=== PATIENT | male | born 1955 | race Asian ===

== ENCOUNTER 2021-03-16 12:25 | Outpatient (REF) | payer MEDICARE, SELFPAY ==
[2021-03-16 13:42] LABS: MANUAL DIFF FLAG NO
[2021-03-16 14:00] LABS: Basophils Percent Auto 0.6 % (0-2); Eosinophils Absolute Auto 0.1 X10*3/uL (0.0-0.4); Eosinophils Percent Auto 2.2 % (0-4); Hematocrit 42.4 % (42-52); Hemoglobin 15.3 g/dl (14.0-18.0); Imm Gran Abs Auto 0.03 X10*3/uL (0.00-0.03); Imm Gran Pct Auto 0.6 % (0.0-0.4); Lymphocytes Absolute Auto 1.6 X10*3/uL (1.2-4.9); Mean Corpuscular HGB Conc 36.1 g/dl (31.0-36.0); Mean Corpuscular Hemoglobin 34.5 pg (27.0-33.0); Mean Corpuscular Volume 95.5 fL (80-98); Mean Platelet Volume 10.3 fL (9.4-12.4); Monocytes Absolute Auto 0.3 X10*3/uL (0.1-1.2); Monocytes Percent Auto 6.1 % (2-11); Neutrophils Absolute Auto 2.8 X10*3/uL (2.0-8.3); Neutrophils Percent Auto 57.5 % (45-73); Platelet Count 200 X10*3/uL (160-400); Red Blood Count 4.44 X10*6/uL (4.60-5.80); Red Cell Distribution Width 11.2 % (11.0-16.0); White Blood Count 4.9 X10*3/uL (4.8-10.8)
[2021-03-16 14:42] LABS: Alanine Aminotransferase 17 U/L (0-40); Albumin Level 4.2 g/dL (3.5-5.0); Alkaline Phosphatase 62 U/L (39-117); Anion Gap 12 (12-20); Aspartate Amino Transferase 17 U/L (5-37); Bilirubin Total 1.2 mg/dL (0.0-1.0); Blood Urea Nitrogen 13 mg/dL (9-16); Calcium 8.9 mg/dL (8.4-10.2); Carbon Dioxide 25 mmol/L (22-29); Chloride 108 mmol/L (96-108); Cholesterol 236 mg/dL; Estimated Glomerular Filt Rate > 60; Glucose Fasting 102 mg/dL (60-99); HDL Cholesterol 40 mg/dL; LDL Cholesterol Calculated 171 mg/dl; Potassium 3.9 mmol/L (3.3-5.1); Sodium 141 mmol/L (135-145); Total Protein 6.7 g/dL (6.5-8.0); Triglycerides 129 mg/dL
== END 2021-03-16 12:26 | disposition home or self-care (01) ==
LOC: HO.LAB 12:25
PROVIDERS: PCP Internal Medicine; Visit Provider Internal Medicine
DX: Z00.00 Encounter for general adult medical examination without abnormal findings (principal); E11.9 Type 2 diabetes mellitus without complications
CPT/HCPCS: 36415; 80053; 80061; 85025

== ENCOUNTER 2022-08-12 09:30 | Outpatient (REF) | payer MEDICARE, SELFPAY ==
[2022-08-12 09:39] LABS: MANUAL DIFF FLAG NO
[2022-08-12 09:49] LABS: Basophils Percent Auto 0.7 % (0-2); Eosinophils Absolute Auto 0.1 X10*3/uL (0.0-0.4); Eosinophils Percent Auto 3.2 % (0-4); Hematocrit 42.7 % (42.0-52.0); Hemoglobin 14.6 g/dl (14.0-18.0); Imm Gran Abs Auto 0.01 X10*3/uL (0.00-0.03); Imm Gran Pct Auto 0.2 % (0.0-0.4); Lymphocytes Absolute Auto 1.7 X10*3/uL (1.2-4.9); Lymphocytes Percent Auto 39.8 % (20-40); Mean Corpuscular HGB Conc 34.2 g/dl (31.0-36.0); Mean Corpuscular Hemoglobin 33.7 pg (27.0-33.0); Mean Corpuscular Volume 98.6 fL (80.0-98.0); Mean Platelet Volume 9.8 fL (9.4-12.4); Monocytes Absolute Auto 0.3 X10*3/uL (0.1-1.2); Monocytes Percent Auto 7.9 % (2-11); Neutrophils Absolute Auto 2.1 x10*3/uL (2.0-8.3); Neutrophils Percent Auto 48.2 % (45-73); Platelet Count 165 X10*3/uL (160-400); Red Blood Count 4.33 X10*6/uL (4.60-5.80); Red Cell Distribution Width 11.3 % (11.0-16.0); White Blood Count 4.3 X10*3/uL (4.8-10.8)
[2022-08-12 10:50] LABS: Alanine Aminotransferase 18 U/L (0-40); Albumin Level 4.3 g/dL (3.5-5.0); Alkaline Phosphatase 62 U/L (39-117); Anion Gap 14 (12-20); Aspartate Amino Transferase 18 U/L (5-37); Bilirubin Total 1.1 mg/dL (0.0-1.0); Blood Urea Nitrogen 18 mg/dL (9-16); Calcium 8.9 mg/dL (8.4-10.2); Carbon Dioxide 25 mmol/L (22-29); Chloride 106 mmol/L (96-108); Cholesterol 244 mg/dL; Estimated Glomerular Filt Rate > 60; Glucose Fasting 96 mg/dL (60-99); HDL Cholesterol 44 mg/dL; LDL Cholesterol Calculated 182 mg/dl; Potassium 3.9 mmol/L (3.3-5.1); Sodium 141 mmol/L (135-145); Total Protein 6.9 g/dL (6.5-8.0); Triglycerides 92 mg/dL
[2022-08-12 10:59] LABS: Prostate Specific Antigen Scr 0.47 ng/mL (<0.05-4.0)
== END 2022-08-12 09:31 | disposition home or self-care (01) ==
LOC: HO.LAB 09:30
PROVIDERS: PCP Internal Medicine; Visit Provider Internal Medicine
DX: Z00.00 Encounter for general adult medical examination without abnormal findings (principal); Z13.0 Encounter for screening for diseases of the blood and blood-forming organs and certain disorders involving the immune mechanism; Z12.5 Encounter for screening for malignant neoplasm of prostate; E78.5 Hyperlipidemia, unspecified; I10 Essential (primary) hypertension
CPT/HCPCS: 36415; 80053; 80061; 84153; 85025

== ENCOUNTER 2022-11-20 14:18 | Outpatient (REF) | payer MEDICARE, SELFPAY ==
[2022-11-20 15:32] LABS: Influenza A PCR NEGATIVE (Negative); Influenza B PCR NEGATIVE (Negative); Resp Syncy Virus RNA Qual PCR NEGATIVE (Negative); SARS COV2 PCR INHOUSE NEGATIVE (Negative)
== END 2022-11-20 14:19 | disposition home or self-care (01) ==
LOC: HO.LNP 14:18
PROVIDERS: Visit Provider Physician Assistant
DX: Z20.822 Contact with and (suspected) exposure to COVID-19 (principal); B34.9 Viral infection, unspecified
CPT/HCPCS: 0241U

== ENCOUNTER 2023-01-02 12:06 | Outpatient (REF) | payer MEDICARE, SELFPAY ==
--- NOTE | ~2023-01-02 | XR_ITS ---
EXAMINATION: XR CHEST CLINICAL INFORMATION: Pneumonia. COMPARISON: None available. TECHNIQUE: 2 views of the chest were obtained. FINDINGS: No significant abnormality is noted involving the heart, lungs, mediastinum, bony thorax or soft tissues. XR/XR chest 2V IMPRESSION: Unremarkable chest examination.
== END 2023-01-02 12:07 | disposition home or self-care (01) ==
LOC: HO.XRAY 12:06
PROVIDERS: PCP Internal Medicine; Visit Provider Internal Medicine
DX: J18.9 Pneumonia, unspecified organism (principal)
CPT/HCPCS: 71046

== ENCOUNTER → 2023-03-14 14:21 | Outpatient (BNVA) | payer MEDICARE, SELFPAY | PROVIDERS: PCP Internal Medicine; Visit Provider Internal Medicine | DX: R05.3 Chronic cough (principal) | CPT/HCPCS: 99202 ==

== ENCOUNTER 2023-04-03 14:19 | Outpatient (REF) | payer MEDICARE, SELFPAY ==
--- NOTE | 2023-04-03 16:28 | PFT_ITS ---
INDICATION: Cough. SPIROMETRY: FEV1 to FVC of 77% with an FEV1 of 2.94 L, which is 100% predicted and FVC of 3.79 L, which is 95% predicted. No significant response to bronchodilators noted. Maximum voluntary ventilation 84% predicted. LUNG VOLUMES: Total lung capacity 126% predicted with a residual volume of 187% predicted. DIFFUSION CAPACITY: DLCO 81% predicted. COMPARISONS: None. INTERPRETATION: No restrictive ventilatory defects identified. No significant response to bronchodilators noted. There is evidence of air trapping/hyperinflation, which could be secondary to small airway disease. There is a normal diffusion capacity. If asthma is in the differential, methacholine challenge may be helpful in assessing for hyperreactive airways. Otherwise, clinical correlation warranted. Johan Spears MD MR/MODL / [id number]
== END 2023-04-03 14:20 | disposition home or self-care (01) ==
LOC: HO.RESP 14:19
PROVIDERS: PCP Internal Medicine; Visit Provider Internal Medicine
DX: R05.3 Chronic cough (principal)
CPT/HCPCS: 94010; 94727; 94729

== ENCOUNTER → 2023-04-03 16:28 | Outpatient (BNV) | payer MEDICARE, SELFPAY | PROVIDERS: PCP Internal Medicine; Visit Provider Hospitalist | DX: R05.3 Chronic cough (principal) | CPT/HCPCS: 94060; 94727; 94729 ==

== ENCOUNTER 2023-05-02 14:25 | Outpatient (AMB) | payer MEDICARE, SELFPAY ==
--- NOTE | 2023-05-02 14:30 | MHC.OFFVIS ---
Intake Vital Signs 05/02/23 14:31 Height 5 ft 6 in Weight 169 lb 12.095 oz BMI 27.4 BP 130/62 Blood Pressure Location Lt brachial Position Sitting Pulse 83 Pulse Source Pulse Oximeter Pulse Oximetry (%) 97 Oxygen Delivery Method Room Air Intake Visit Reasons: Cough Intake Note: Pt presents today to discuss PFT results. Pt sometimes has a cough where he brings up mucus that used to be yellow but is now white. Pt says that at his last visit he was supposed to be prescribed an inhaler but never received one. 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 SINCE LAST VISIT HE HAS HAD VERY LITTLE COUGH. ONLY OCCASIONAL MILD COUGH, BRINGS UP SMALL AMOUNTS OF PHLEGM WHICH IS WHITE, AND NOT YELLOW OR GREEN. HE DENIES ANY WHEEZING ATTACKS. HE HAS HAD NO RECURRENT RESPIRATORY INFECTION. HE IS NONSMOKER . [facility] Surgical History No history of previous surgery Family History Mother No problems noted. Father No problems noted. Social History Housing: Apartment Alcohol intake: never Patient Tobacco Use Status: Never used Tobacco e-Cigarette/Vaping Use: Never Used Second Hand Smoke Exposure: No service: No Current occupational status: employed Cognitive needs: No Hearing needs: No Vision needs: No Review of Systems Const All systems reviewed & are unremarkable except as noted in HPI and below Eyes Reports no additional complaints ENT Reports no additional complaints and Reports post nasal drip (ONLY MILD OFF AND ON) Card Reports no additional complaints Resp Denies chest congestion, Reports cough (HAS HAD BOUTS OF COUGH BUT NOT AT PRESENT), Denies hemoptysis and Denies excessive phlegm production GI Reports no additional complaints Reports no additional complaints Musc Reports no additional complaints Skin/Breast Reports system reviewed and no additional complaints, except as documented Neuro Reports no additional complaints Psych Reports no additional complaints Endo Reports no additional complaints Aller/Immun Reports no additional complaints Physical Exam Vital Signs: Last Vital Signs Pulse 83 05/02/23 14:31 BP 130/62 05/02/23 14:31 Pulse Ox 97 05/02/23 14:31 Oxygen Delivery Method Room Air 05/02/23 14:31 BMI result Body Mass Index 27.4 Const General: healthy appearing, comfortable, no acute distress, alert and awake Orientation/consciousness: patient oriented x3 HEENT Head: Yes normal to inspection General nose exam: No nasal polyps present and No nasal discharge present Face and sinus: Yes sinuses nontender Mouth: oropharynx normal Throat: Yes posterior oropharynx normal Eyes General: appearance normal, both eyes and all related structures Neck Neck: Yes normal visual inspection, Yes no lymphadenopathy, Yes trachea midline and Yes no JVD Thyroid: Thyroid normal Chest Chest palpation & inspection: normal inspection of the chest, normal palpation of entire chest wall and no tenderness Resp Effort & Inspection: normal respiratory effort Auscultation: clear to auscultation bilaterally, no crackles and no wheezes Cardio Palpation: normal PMI Rate: regular rate Rhythm: regular rhythm Heart sounds: no gallops and no murmurs Peripheral pulses: Peripheral pulses 2+ throughout GI Palpation (GI): Soft to palpation, nontender, No hepatosplenomegaly present and no masses Auscultation: normal bowel sounds Back/Spine/Pelvis Thoracic/Lumbar Spine: thoracic and lumbar spine normal to inspection Skin General skin exam: no rashes or lesions noted Neuro General: patient oriented x3 and no focal motor deficits Cranial nerves: Yes CN's II-XII intact bilaterally Extrem General: Yes normal to inspection, Yes no clubbing, cyanosis or edema and Yes no calf tenderness Psych Appearance: grossly normal and well kempt Speech and movement: Normal speech and movement present Results Reviewed Results Reviewed: PULMONARY FUNCTION TEST IS ESSENTIALLY NORMAL. NO EVIDENCE OF OBSTRUCTIVE OR RESTRICTIVE. PULMONARY DISORDER ALSO NO RESPONSE TO BRONCHODILATOR THERAPY. Assessment & Plan Assessment & Plan (1) Chronic cough: Comment: THIS GENTLEMAN HAD RECURRENT BOUTS OF COUGH DURING THE LAST WINTER. MOST LIKELY HE HAD POST INFECTIOUS COUGH, AND AFTER EFFECTIVE USE OF ANTIBIOTIC THE COUGH HAD RESOLVED ALMOST COMPLETELY. HE CONTINUES TO HAVE MILD INTERMITTENT COUGH PROBABLY DUE TO REACTIVE AIRWAYS. HE HAS NOT NEEDED TO USE ALBUTEROL INHALER. PULMONARY FUNCTION TEST IS ESSENTIALLY NORMAL. TX: I EXPLAINED THE RESULTS OF PULMONARY FUNCTION TEST TO HIM, REASSURED THAT HIS LUNGS WERE NORMAL. COUGH IS PROBABLY MILD SECONDARY TO REACTIVE AIRWAYS, POST INFECTIOUS . AND MAY LINGER ON FOR A FEW WEEKS ,EACH TIME AFTER HE HAS RESPIRATORY INFECTION. HE WILL USE ALBUTEROL HFA 1 OR 2 PUFFS Q 4-6 HOURS ONLY P.R.N. IF HE HAS PERSISTENT BOUT OF COUGH OR WHEEZING. NO NEED OF ANY REGULAR APPOINTMENT , BUT HE MAY CALL US IF THE COUGH BECOMES BOTHERSOME. Code(s): R05.3 - Chronic cough Coding Level of Care Code Est Pt Level 3 (86666) Diagnoses Chronic cough R05.3
[2023-05-02 14:31] VITALS: BP 130/62; PULSE 83; O2SAT 97; BMI 27.4
== END 2023-05-02 15:23 | disposition home or self-care (01) ==
PROVIDERS: PCP Internal Medicine; Visit Provider Internal Medicine
DX: R05.3 Chronic cough (principal)
CPT/HCPCS: 99213

== ENCOUNTER → 2023-05-02 14:25 | Outpatient (BNVA) | payer MEDICARE, SELFPAY | PROVIDERS: PCP Internal Medicine; Visit Provider Internal Medicine | DX: R05.3 Chronic cough (principal) | CPT/HCPCS: 99212 ==

== ENCOUNTER 2023-08-14 13:41 | Outpatient (AMB) | payer MEDICARE, SELFPAY ==
[2023-08-14 13:42] VITALS: BP 124/68; PULSE 85; O2SAT 96; BMI 27.3
--- NOTE | 2023-08-14 13:42 | MHC.PC.OV ---
Vital Signs 08/14/23 13:42 Height 5 ft 6 in Weight 169 lb BMI 27.3 BP 124/68 Blood Pressure Location Lt brachial Position Sitting Pulse 85 Pulse Source Pulse Oximeter Pulse Oximetry (%) 96 Oxygen Delivery Method Room Air Intake Visit Reasons: Annual Exam Washery Boss Required: No Clinical Law Professor: Not Required per policy Accompanied by: Self / Same As Patient Allergies No Known Allergies Allergy (Verified 08/14/23 13:42) Medication List - Last Reconciled 08/15/23 by Wes Loyd MD atorvastatin 20 mg PO DAILY Tobacco use date assessed: 01/02/23 Fall risk assessment: No Falls in past year Last assessed Fall Risk: 08/14/23 Dental Screening Dental Screen Date: 08/14/23 Did you have a dental visit in the last 12 months?: Yes Did you have a dental problem in the last 6 months where you did not have access to dental care?: No Was dental information given to patient?: Patient has dentist HPI Annual Exam HPI Details Hyperlipidemia on Rx; doing well and compliant [facility] Surgical History No history of previous surgery Family History Mother No problems noted. Father No problems noted. Housing: Apartment Alcohol intake: never Patient Tobacco Use Status: Never used Tobacco e-Cigarette/Vaping Use: Never Used Second Hand Smoke Exposure: No service: No Current occupational status: employed Cognitive needs: No Hearing needs: No Vision needs: Yes Questionnaire Thrive Questionnaire Date Thrive assessed: 01/02/23 RAY-7 AMB Questionnaire RAY-7 Date RAY - 7 assessed: 01/02/23 Source: Developed by Drs. Gary Osullivan, Nelida Boles, Yaniv Jackson and colleagues, with an educational alisa from [employer]. Review of Systems Const Denies chills, Denies fatigue, Denies headache(s) and Denies weight loss Eyes Denies change in vision, Denies diplopia and Denies eye pain ENT Denies vertigo, Denies dizziness, Denies headache(s) and Denies nasal discharge Card Denies chest pain, Denies rapid heart rate and Denies dyspnea on exertion Resp Denies chest congestion, Denies cough, Denies pain with cough and Denies dyspnea on exertion GI Denies abdominal pain, Denies hematochezia and Denies change in bowel habits Musc Denies myalgias, Denies arthralgias and Denies joint swelling Skin/Breast Denies lesions and Denies unusual bruising Neuro Denies vertigo, Denies dizziness, Denies headache(s) and Denies focal weakness Endo Denies fatigue Physical exam (Primary Care) Vital Signs: Last Vital Signs Pulse 85 08/14/23 13:42 BP 124/68 08/14/23 13:42 Pulse Ox 96 08/14/23 13:42 Oxygen Delivery Method Room Air 08/14/23 13:42 BMI result Body Mass Index 27.3 Tobacco/Smoking Status: Tobacco use Status Tobacco use date assessed 01/02/23 08/14/23 13:46 Patient Tobacco Use Status Never used Tobacco 08/14/23 13:46 e-Cigarette/Vaping Use Never Used 08/14/23 13:46 Thrive Assessment: Date of Thrive Assessment Date Thrive assessed 01/02/23 08/14/23 13:46 Advance Care Planning discussion: On file, no changes Forms completed: Health Care Proxy Const General: cooperative, healthy appearing and no acute distress Orientation/consciousness: oriented to person, oriented to place and oriented to time [facility] Head: Yes normal to inspection, Yes normocephalic and Yes atraumatic Mouth: Normal oral and palatal mucosa present and tongue normal Throat: Yes posterior oropharynx normal and Yes uvula midline Eyes General: appearance normal, both eyes and all related structures Neck Neck: Yes normal visual inspection, Yes full ROM and Yes no lymphadenopathy Thyroid: Thyroid normal Carotids: normal carotid upstroke Chest Chest palpation & inspection: normal inspection of the chest Resp Effort & Inspection: normal respiratory effort and able to speak in complete sentences Auscultation: clear to auscultation bilaterally Cardio Jugular venous distension: no JVD Palpation: normal PMI Rate: regular rate Rhythm: regular rhythm Heart sounds: S1 normal heart sound present and S2 normal heart sound present GI Inspection: Yes normal to inspection Palpation (GI): Soft to palpation and No hepatosplenomegaly present Auscultation: normal bowel sounds General: Yes no CVA tenderness Back/Spine/Pelvis Back: no CVA tenderness Skin General skin exam: no rashes or lesions noted Neuro General: oriented to person, oriented to place and oriented to time Extrem General: Yes normal to inspection and Yes full ROM Assessment and Plan Assessment & Plan (1) Physical exam: Code(s): Z00.00 - Encounter for general adult medical examination without abnormal findings Plan: stable (2) Hyperlipidemia: Code(s): E78.5 - Hyperlipidemia, unspecified Plan: stable; same rx Orders: Orders Lipid Panel Today E78.5 - Hyperlipidemia, unspecified Comprehensive [place]. Panel Fast Today N28.9 - Disorder of kidney and ureter, unspecified Prostate Specific Antigen Scr Today Z00.00 - Encounter for general adult medical examination without abnormal findings Complete Blood Count Auto Diff Today D64.9 - Anemia, unspecified Referrals Gastroenterology Referral Z12.11 - Encounter for screening for malignant neoplasm of colon Coding Level of Care Code Est Pt Prev Care >65y(44183) Diagnoses Physical exam Z00.00 Hyperlipidemia E78.5 Additional Codes Vital Signs *Quality* - Advance Care Planning discussion: On file, no changes ([id number])
== END 2023-08-14 14:06 | disposition home or self-care (01) ==
PROVIDERS: Visit Provider Internal Medicine
DX: Z00.00 Encounter for general adult medical examination without abnormal findings (principal); E78.5 Hyperlipidemia, unspecified
CPT/HCPCS: 1123F; 99397

== ENCOUNTER 2023-08-20 11:53 | Outpatient (REF) | payer MEDICARE, SELFPAY ==
[2023-08-20 12:11] LABS: MANUAL DIFF FLAG NO
[2023-08-20 12:47] LABS: Basophils Percent Auto 0.4 % (0-2); Eosinophils Absolute Auto 0.1 X10*3/uL (0.0-0.4); Eosinophils Percent Auto 2.4 % (0-4); Hematocrit 41.8 % (42.0-52.0); Imm Gran Abs Auto 0.01 X10*3/uL (0.00-0.03); Imm Gran Pct Auto 0.2 % (0.0-0.4); Lymphocytes Percent Auto 39.5 % (20-40); Mean Corpuscular HGB Conc 35.9 g/dl (31.0-36.0); Mean Corpuscular Hemoglobin 34.3 pg (27.0-33.0); Mean Corpuscular Volume 95.7 fL (80.0-98.0); Mean Platelet Volume 10.6 fL (9.4-12.4); Monocytes Absolute Auto 0.3 X10*3/uL (0.1-1.2); Monocytes Percent Auto 6.7 % (2-11); Neutrophils Absolute Auto 2.5 x10*3/uL (2.0-8.3); Neutrophils Percent Auto 50.8 % (45-73); Platelet Count 159 X10*3/uL (160-400); Red Blood Count 4.37 X10*6/uL (4.60-5.80); Red Cell Distribution Width 11.1 % (11.0-16.0)
[2023-08-20 13:19] LABS: Alanine Aminotransferase 27 U/L (0-40); Albumin Level 4.1 g/dL (3.5-5.0); Alkaline Phosphatase 64 U/L (39-117); Anion Gap 12 (12-20); Aspartate Amino Transferase 22 U/L (5-37); Bilirubin Total 1.4 mg/dL (0.0-1.0); Blood Urea Nitrogen 15 mg/dL (9-16); Calcium 9.2 mg/dL (8.4-10.2); Carbon Dioxide 25 mmol/L (22-29); Chloride 107 mmol/L (96-108); Cholesterol 138 mg/dL (<200); Estimated Glomerular Filt Rate > 60; Glucose Fasting 93 mg/dL (60-99); HDL Cholesterol 37 mg/dL (>40); LDL Cholesterol Calculated 88 mg/dL (<100); Potassium 3.7 mmol/L (3.3-5.1); Sodium 140 mmol/L (135-145); Total Protein 6.9 g/dL (6.5-8.0); Triglycerides 68 mg/dL (<150)
[2023-08-20 13:39] LABS: Prostate Specific Antigen Scr 0.57 ng/mL (<0.05-4.0)
== END 2023-08-20 11:54 | disposition home or self-care (01) ==
LOC: HO.LAB 11:53
PROVIDERS: PCP Internal Medicine; Visit Provider Internal Medicine
DX: Z00.00 Encounter for general adult medical examination without abnormal findings (principal); Z12.5 Encounter for screening for malignant neoplasm of prostate; E78.5 Hyperlipidemia, unspecified; N28.9 Disorder of kidney and ureter, unspecified; D64.9 Anemia, unspecified
CPT/HCPCS: 36415; 80053; 80061; 84153; 85025

== ENCOUNTER 2024-08-18 12:55 | Outpatient (AMB) | payer MEDICARE, SELFPAY ==
[2024-08-18 13:01] VITALS: BP 110/62; PULSE 91; O2SAT 96; BMI 27.1
--- NOTE | 2024-08-18 13:01 | A.OFFPC_ITS ---
Vital Signs 08/18/24 13:01 Height 5 ft 6 in Weight 168 lb 0.4 oz BMI 27.1 BP 110/62 Blood Pressure Location Lt brachial Position Sitting Pulse 91 Pulse Source Pulse Oximeter Pulse Oximetry (%) 96 Oxygen Delivery Method Room Air Intake Visit Reasons: Annual exam Sales Merchandise Associate Required: No Accompanied by: Self / Same As Patient Allergies No Known Allergies Allergy (Verified 08/18/24 13:01) Tobacco use date assessed: 08/18/24 Fall risk assessment: No Falls in past year Last assessed Fall Risk: 08/18/24 Dental Screening Dental Screen Date: 08/18/24 Did you have a dental visit in the last 12 months?: Yes Did you have a dental problem in the last 6 months where you did not have access to dental care?: No Was dental information given to patient?: Patient has dentist HPI Annual exam HPI Details hyperlipidemia on rx; doing well [facility] Surgical History No history of previous surgery Family History Mother No problems noted. Father No problems noted. Social History Housing: Apartment Alcohol intake: never Patient Tobacco Use Status: Never used Tobacco e-Cigarette/Vaping Use: Never Used Second Hand Smoke Exposure: No service: No Current occupational status: employed Cognitive needs: No Hearing needs: No Vision needs: Yes Questionnaire PHQ-9 Over the last 2 weeks, how often have you been bothered by any of the following problems? 1. Little interest or pleasure in doing things: not at all 2. Feeling down, depressed, or hopeless: not at all 3. Trouble falling or staying asleep, or sleeping too much: not at all 4. Feeling tired or having little energy: not at all 5. Poor appetite or overeating: not at all 6. Feeling bad about yourself - or that you are a failure or have let yourself or your family down: not at all 7. Trouble concentrating on things, such as reading the newspaper or watching television: not at all 8. Moving or speaking so slowly that other people could have noticed. Or the opposite - being so fidgety or restless that you have been moving around a lot more than usual: not at all 9. Thoughts that you would be better off or of hurting yourself in some way: not at all Total score: 0 Source: Developed by Drs. Gary Osullivan, Nelida Boles, Yaniv Jackson and colleagues, with an educational alisa from [employer]. Thrive Questionnaire Date Thrive assessed: 08/16/24 I am a: Patient What is your living situation today?: I have a steady place to live Within the past 12 months, did the food you bought not last and you didn't have the money to get more?: Never true Within the past 12 months, did you worry whether your food would run out before you got money to buy more?: Never true Do you have trouble paying for medicines?: No Do you have trouble getting transportation to medical appointments?: No Do you have trouble paying your heating and electricity bill?: No Do you have trouble taking care of your child, family member or friend?: No Do you have trouble with day-to-day activities such as bathing, preparing meals, shopping, managing finances, etc.?: No Are you currently unemployed and looking for a job?: No Are you interested in more education?: No Please select the resources that you would like help with: None Currently or been in a relationship where the following occur: No concerns reported THRIVE Score: 0 AUDIT C Alcohol Use Questionnaire (AUDIT-C) 1. How often do you have a drink containing alcohol?: Monthly or less 2. How many drinks containing alcohol do you have on a typical day when you are drinking?: 1 or 2 3. How often do you have six or more drinks on one occasion?: Never Total Score: 1 RAY-7 AMB Questionnaire RAY-7 Date RAY - 7 assessed: 08/18/24 Feeling nervous, anxious, or on edge: 0 = Not at all Not being able to stop or control worryin = Not at all Worrying too much about different things: 0 = Not at all Trouble relaxin = Not at all Being so restless that it is hard to sit still: 0 = Not at all Becoming easily annoyed or irritable: 0 = Not at all Feeling afraid as if something awful might happen: 0 = Not at all Total RAY-7 score (0-4 normal; 5-9 mild; 10-14 moderate; 15-21 severe): 0 Source: Developed by Drs. Gary Osullivan, Nelida Boles, Yaniv Jackson and colleagues, with an educational alisa from [employer]. Review of Systems Const Denies chills, Denies fatigue, Denies headache(s) and Denies weight loss Eyes Denies change in vision, Denies diplopia and Denies eye pain ENT Denies vertigo, Denies dizziness, Denies headache(s) and Denies nasal discharge Card Denies chest pain, Denies rapid heart rate and Denies dyspnea on exertion Resp Denies chest congestion, Denies cough, Denies pain with cough and Denies dyspnea on exertion GI Denies abdominal pain, Denies hematochezia and Denies change in bowel habits Musc Denies myalgias, Denies arthralgias and Denies joint swelling Skin/Breast Denies lesions and Denies unusual bruising Neuro Denies vertigo, Denies dizziness, Denies headache(s) and Denies focal weakness Endo Denies fatigue Physical exam (Primary Care) Vital Signs: Last Vital Signs Pulse 91 08/18/24 13:01 BP 110/62 08/18/24 13:01 Pulse Ox 96 08/18/24 13:01 Oxygen Delivery Method Room Air 08/18/24 13:01 BMI result Body Mass Index 27.1 Tobacco/Smoking Status: Tobacco use Status Tobacco use date assessed 08/18/24 08/18/24 13:07 Patient Tobacco Use Status Never used Tobacco 08/18/24 13:07 e-Cigarette/Vaping Use Never Used 08/18/24 13:07 PHQ-9: PHQ-9 Score PHQ-9: Total score 0 08/18/24 13:07 Thrive Assessment: Date of Thrive Assessment Date Thrive assessed 08/16/24 08/18/24 13:07 Currently or been in a relationship where the following occur: No concerns reported Const General: cooperative, healthy appearing and no acute distress Orientation/consciousness: oriented to person, oriented to place and oriented to time [facility] Head: Yes normal to inspection, Yes normocephalic and Yes atraumatic Mouth: Normal oral and palatal mucosa present and tongue normal Throat: Yes posterior oropharynx normal and Yes uvula midline Eyes General: appearance normal, both eyes and all related structures Neck Neck: Yes normal visual inspection, Yes full ROM and Yes no lymphadenopathy Thyroid: Thyroid normal Carotids: normal carotid upstroke Chest Chest palpation & inspection: normal inspection of the chest Resp Effort & Inspection: normal respiratory effort and able to speak in complete sentences Auscultation: clear to auscultation bilaterally Cardio Jugular venous distension: no JVD Palpation: normal PMI Rate: regular rate Rhythm: regular rhythm Heart sounds: S1 normal heart sound present and S2 normal heart sound present GI Inspection: Yes normal to inspection Palpation (GI): Soft to palpation and No hepatosplenomegaly present Auscultation: normal bowel sounds General: Yes no CVA tenderness Back/Spine/Pelvis Back: no CVA tenderness Skin General skin exam: no rashes or lesions noted Neuro General: oriented to person, oriented to place and oriented to time Extrem General: Yes normal to inspection and Yes full ROM Coding Level of Care Code Est Pt Prev Care >65y(86317) Diagnoses Physical exam Z00.00 Hyperlipidemia E78.5 Assessment & Plan Assessment & Plan (1) Physical exam: Code(s): Z00.00 - Encounter for general adult medical examination without abnormal findings Category: Medical Plan: stable; do labs (2) Hyperlipidemia: Code(s): E78.5 - Hyperlipidemia, unspecified Category: Medical Plan: same rx Orders: Orders Lipid Panel Today Z13.220 - Encounter for screening for lipoid disorders Thyroid Stimulating Hormone Today Z13.29 - Encounter for screening for other suspected endocrine disorder Prostate Specific Antigen Scr Today Z00.00 - Encounter for general adult medical examination without abnormal findings Comprehensive [place]. Panel Fast Today Z13.9 - Encounter for screening, unspecified Complete Blood Count Auto Diff Today Z13.0 - Encounter for screening for diseases of the blood and blood-forming organs and certain disorders involving the immune mechanism
== END 2024-08-18 13:25 | disposition home or self-care (01) ==
PROVIDERS: PCP Internal Medicine; Visit Provider Internal Medicine
DX: Z00.00 Encounter for general adult medical examination without abnormal findings (principal); E78.5 Hyperlipidemia, unspecified

== ENCOUNTER → 2024-08-18 12:55 | Outpatient (BNVA) | payer MEDICARE, SELFPAY | PROVIDERS: PCP Internal Medicine; Visit Provider Internal Medicine | DX: Z00.00 Encounter for general adult medical examination without abnormal findings (principal); E78.5 Hyperlipidemia, unspecified | CPT/HCPCS: 96127; 99397 ==

== ENCOUNTER 2024-08-20 11:23 | Outpatient (REF) | payer MEDICARE, SELFPAY ==
[2024-08-20 11:42] LABS: MANUAL DIFF FLAG NO
[2024-08-20 12:20] LABS: Basophils Percent Auto 0.7 % (0-2); Eosinophils Absolute Auto 0.1 X10*3/uL (0.0-0.4); Eosinophils Percent Auto 2.2 % (0-4); Hematocrit 43.7 % (42.0-52.0); Hemoglobin 15.7 g/dl (14.0-18.0); Imm Gran Abs Auto 0.02 X10*3/uL (0.00-0.03); Imm Gran Pct Auto 0.4 % (0.0-0.4); Lymphocytes Absolute Auto 1.7 X10*3/uL (1.2-4.9); Lymphocytes Percent Auto 36.6 % (20-40); Mean Corpuscular HGB Conc 35.9 g/dl (31.0-36.0); Mean Corpuscular Hemoglobin 34.7 pg (27.0-33.0); Mean Corpuscular Volume 96.7 fL (80.0-98.0); Mean Platelet Volume 10.1 fL (9.4-12.4); Monocytes Absolute Auto 0.3 X10*3/uL (0.1-1.2); Neutrophils Absolute Auto 2.4 x10*3/uL (2.0-8.3); Neutrophils Percent Auto 53.1 % (45-73); Platelet Count 185 X10*3/uL (160-400); Red Blood Count 4.52 X10*6/uL (4.60-5.80); Red Cell Distribution Width 11.3 % (11.0-16.0); White Blood Count 4.6 X10*3/uL (4.8-10.8)
[2024-08-20 12:59] LABS: Alanine Aminotransferase 35 U/L (0-40); Albumin Level 4.2 g/dL (3.5-5.0); Alkaline Phosphatase 71 U/L (39-117); Anion Gap 16 (12-20); Aspartate Amino Transferase 26 U/L (5-37); Bilirubin Total 1.2 mg/dL (0.0-1.0); Blood Urea Nitrogen 12 mg/dL (9-16); Carbon Dioxide 24 mmol/L (22-29); Chloride 106 mmol/L (96-108); Cholesterol 151 mg/dL (<200); Estimated Glomerular Filt Rate > 60; Glucose Fasting 110 mg/dL (60-99); HDL Cholesterol 39 mg/dL (>40); LDL Cholesterol Calculated 93 mg/dL (<100); Potassium 3.7 mmol/L (3.3-5.1); Sodium 142 mmol/L (135-145); Triglycerides 96 mg/dL (<150)
[2024-08-20 13:04] LABS: Prostate Specific Antigen Scr 0.65 ng/mL (<0.05-4.0)
[2024-08-20 13:08] LABS: Thyroid Stimulating Hormone 1.57 uIU/mL (0.32-4.0)
== END 2024-08-20 11:24 | disposition home or self-care (01) ==
LOC: HO.LAB 11:23
PROVIDERS: PCP Internal Medicine; Visit Provider Internal Medicine
DX: Z13.0 Encounter for screening for diseases of the blood and blood-forming organs and certain disorders involving the immune mechanism (principal); Z00.00 Encounter for general adult medical examination without abnormal findings; Z13.220 Encounter for screening for lipoid disorders; Z13.29 Encounter for screening for other suspected endocrine disorder; Z12.5 Encounter for screening for malignant neoplasm of prostate
CPT/HCPCS: 36415; 80053; 80061; 84153; 84443; 85025

== ENCOUNTER 2024-09-10 07:08 | Day surgery (SDC) | payer MEDICARE, SELFPAY ==
--- OUTSIDE RECORDS SUMMARY | 2024-09-04 02:47 | XMS_ITS ---
Author Organization [facility] Address [address] [place] [address] Care Team Providers Care Wind Tunnel Mechanic Name Role Phone Rach MAO, Wes Primary Care Provider Gary Sharma Unavailable [phone] REASON FOR VISIT screening,hx polyps,gerd, hx ulcer Encounters Encounter Location Date Provider Diagnosis [facility] [address] [place] [address] [id number] 07/18/2024 Gary Ramírez PLAN OF TREATMENT Next Appt Details Provider Name:Gary Ramírez , 09/10/2024 09:30:00 AM, [address] [place] [address], [phone],
--- OUTSIDE RECORDS SUMMARY | 2024-09-04 02:47 | XMS_ITS ---
Author Organization [facility] Address [address] [place] [address] Care Team Providers Care Fire Tower Keeper Name Role Phone Rach MAO, Wes Primary Care Provider Gary Sharma Unavailable [phone] REASON FOR VISIT screening,hx polyps,gerd, hx ulcer Encounters Encounter Location Date Provider Diagnosis [facility] [address] [place] [address] [phone] 04/04/2024 Gary Ramírez PLAN OF TREATMENT Next Appt Details Provider Name:Gary Ramírez , 09/10/2024 09:30:00 AM, [address] [place] [address], [phone],
--- OUTSIDE RECORDS SUMMARY | 2024-09-04 02:47 | XMS_ITS | Patient Health Record ---
Author Organization [facility] Address [address] [place] [address] Care Team Providers Care Control Room Supervisor Name Role Phone eWs Loyd MD Primary Care Provider Gary Sharma [phone] ALLERGIES Allergen (clinical drug ingredient) Drug/Non Drug Allergy documented on EMR Reaction Allergy Type Onset Date Status hayfever (uncoded) Unknown Allergy A ctive REASON FOR REFERRAL No Information MEDICATIONS Medication SIG (Take, Route, Frequency, Duration) Notes Start Date End Date Status Latanoprost 0.005 % INSTILL 1 DROP INTO BOTH EYES AT BEDTIME Ophthalmic for 25 Active Atorvastatin Calcium 20 MG TAKE 1 TABLET BY MOUTH EVERY DAY Oral for 90 Active IMMUNIZATIONS Vaccine Route Administration Date Status Comme nts Influenza Unknown 07/17/2023 Administered SOCIAL HISTORY Tobacco Use: Social History Observation Description Date Details (start date - stop date) Never Smoker NA - NA Sex Assigned At : Social History Observation Description Sex Assigned At Unknown Tobacco Use/Smoking Question Answer Notes Patient is a nonsmoker Alcohol Screen Question Answer Notes Did you have a drink containing alcohol in the p ast year? No Points 0 Interpretation Negative PROBLEMS Problem Type ICD Code Onset Dates Problem Status W/U Status Risk SNOMED Code Notes Problem Colon cancer screening (Z12.11) Active confirmed Colon cancer screening (567851979) Problem GERD (gastroesophage al reflux disease) (K21.9) Active confirmed Gastroesophagea l reflux disease (494099249) Problem History of ulcer disease (Z87.898) Active confirmed Problem History of colon polyps (Z86.010) Active confirmed History of poly p of colon (425958013) Problem History of Helicobacter pylori infection (Z86.19) Active confirmed History of Helicobacter pylori infection (63806272804077968) VITAL SIGNS Temperature 98.0 degrees Fahrenheit 12/19/2023 Blood pressure diastolic 00 mm Hg 12/19/2023 Height 5 ft 7 in in 12/19/2023 Blood pressure systolic 000 mm Hg 12/19/2023 Weight 170 lb 8 oz lbs 12/19/2023 BMI 26.70 kg/m2 12/19/2023 Encounters Encounter Location Date Provider Diagnosis [facility] Outpatient [address] [place] [id number] 04/04/2024 Gary Ramírez [facility] Outpatient [address] [place] [address] [id number] 07/18/2024 Gary Ramírez [facility] [address] [place] [phone] 12/19/2023 Gary Ramírez Colon cancer screeni ng Z12.11 ; GERD (gastroesophageal reflux disease) K21.9 ; History of ulcer disease Z87.898 ; History of colon polyps Z86.010 and History of Helicobacter pylori infection Z86.19 [facility] [address] [place] [phone] 03/11/2024 Gary Ramírez ASSESSMENTS Encounter Date Diagnosis Assessment Notes Treatment Notes Treatment Clinical Notes 12/19/2023 Colon cancer screening (ICD-10 - Z12.11) 12/19/2023 GERD (gastroesophageal reflux disease) (ICD-10 - K21.9) 12/19/2023 History of ulcer disease (ICD-10 - Z87.898) 12/19/2023 History of colon polyps (ICD-10 - Z86.010) 12/19/2023 History of Helicobacter pylori infection (ICD-10 - Z86.19) PLAN OF TREATMENT Future Test Test Name Order Date UPPER GI ENDOSCOPY 12/19/2023 COLONOSCOPY 12/19/2023 Next Appt Details Provider Name:Gary Ramírez , 09/10/2024 09:30:00 AM, [address] [place] [address], [phone], Insurance Providers Payer Name Payer Address Payer Phone Subscriber Number Group Number Insured Name Patient Relationship to Insured Coverage Start Date Coverage End Date [facility] [address] [place] [address] [id number] FELIZ Self - patient is the insured MEDICAL (GENERAL) HISTORY Medical History History ICD Code Hyperlipidemia Glaucoma Denies [place],DM,CVA,Lung disease,renal dise ase Bleeding ulcer in 2006 in [facility]--had an EGD-treated for H.pylori by his description Colonoscopy in 2006 with the reported re moval of some polyps Surgical History Surgery Date(Month/Year)
--- OUTSIDE RECORDS SUMMARY | 2024-09-04 02:47 | XMS_ITS ---
Author Organization [facility] Address [address] [place] [address] Care Team Providers Care Bending Shed Worker Name Role Phone Rach MAO, Wes Primary Care Provider Gary Sharma Unavailable [phone] Encounters Encounter Location Date Provider Diagnosis [facility] [address] [place] [address] 03/11/2024 Gary Ramírez PLAN OF TREATMENT Next Appt Details Provider Name:Gary Ramírez , 09/10/2024 09:30:00 AM, [address] [place] [address] , [place], [phone],
[2024-09-08 13:30] VITALS: BMI 26.8
--- NOTE | 2024-09-09 12:57 | P.CONAN_ITS ---
Documented by User: Clair Del Cid NP 09/09/24 12:58 HPI - Anesthesia Eval Consult details Narrative: 69yo M for Upper Endoscopy and Colonoscopy [facility] Active Problems Active Problems: All Active Problems Hyperlipidemia (Acute) Chronic cough (Acute) Physical exam (Acute) Past Medical History Medical History Peptic ulcer Glaucoma Hyperlipidemia Family History Family History Mother No problems noted. Father No problems noted. Surgical History Surgical History History of esophagogastroduodenoscopy (EGD) H/O colonoscopy Social History Social History Household Members: Spouse Housing: Apartment Are you a primary vision care associate to a significant other at home: No Do you presently have visiting nurse or other home services: No Alcohol intake: never Patient Tobacco Use Status: Never used Tobacco e-Cigarette/Vaping Use: Never Used Second Hand Smoke Exposure: No Use of substances other than those prescribed or required for medical reasons: No Have you been hit, kicked, punched, or otherwise hurt by someone within the past year? If so, by whom?: No Are you DNR?: No Advance Directives: No Advance Directives Information Provided: Yes Advance Directives on File: No Recently lost weight without trying: No Nutrition Risks: No Nutritional Risk Poor oral hygiene: No service: No Current occupational status: employed Cognitive needs: No Hearing needs: No Vision needs: Yes Meds Allergies Allergy/AdvReac Type Severity Reaction Status Date / Time No Known Allergies Allergy Verified 08/18/24 13:01 Home Medications ?Medication ?Instructions ?Recorded ?Confirmed ?Last Taken ?Type latanoprost 0.005 % eye drops 1 drp ophthalmic (eye) BEDTIME 09/08/24 09/08/24 Unknown History Exam Height,Weight and Vital Signs: Height 5 ft 7 in Weight 77.564 kg Assessment and Plan Assessment Anesthesia Assessment: Chart Reviewed Documented by User: Tonya Jones MD 09/10/24 09:43 [facility] Past Medical History Medical History Peptic ulcer Glaucoma Hyperlipidemia Family History Family History Mother No problems noted. Father No problems noted. Surgical History Surgical History History of esophagogastroduodenoscopy (EGD) H/O colonoscopy History of Problems with Anesthesia: No Social History Social History Household Members: Spouse Housing: Apartment Are you a primary vision care associate to a significant other at home: No Do you presently have visiting nurse or other home services: No Alcohol intake: never Patient Tobacco Use Status: Never used Tobacco e-Cigarette/Vaping Use: Never Used Second Hand Smoke Exposure: No Use of substances other than those prescribed or required for medical reasons: No Have you been hit, kicked, punched, or otherwise hurt by someone within the past year? If so, by whom?: No Are you DNR?: No Advance Directives: No Advance Directives Information Provided: Yes Advance Directives on File: No Recently lost weight without trying: No Nutrition Risks: No Nutritional Risk Poor oral hygiene: No service: No Current occupational status: employed Cognitive needs: No Hearing needs: No Vision needs: Yes Meds Allergies Allergy/AdvReac Type Severity Reaction Status Date / Time No Known Allergies Allergy Verified 08/18/24 13:01 Home Medications ?Medication ?Instructions ?Recorded ?Confirmed ?Last Taken ?Type latanoprost 0.005 % eye drops 1 drp ophthalmic (eye) BEDTIME 09/08/24 09/08/24 Unknown History Exam Airway Mallampati Class: II TM Dist: >3cm Neck ROM: Full Loose/Missing/Broken Teeth: No Heart: RRR Lungs: CTA Assessment and Plan Assessment Anesthesia Assessment: Anesthesia Plan Discussed Final Anesthetic Review History of Problems with Anesthesia: No NPO: Yes ASA Class: II Final Preanesthetic Review: Meds/Allgs Chart Reviewed, Consent Obtained/Reviewed and Anes Risks/Benef Reviewed Patient Risk: Low Procedure Risk: Low Anesthetic Plan Anesthetic Plan: MAC: Disposition: Standard PACU
--- OUTSIDE RECORDS SUMMARY | 2024-09-10 07:10 | XMS_ITS ---
Author Organization [facility] Address [address] [place] [address] Care Team Providers Care Waiter/Waitress Dining Car Name Role Phone Rach MOA, Wes Primary Care Provider Gary Sharma Unavailable [phone] REASON FOR VISIT screening,hx polyps,gerd, hx ulcer Encounters Encounter Location Date Provider Diagnosis [facility] Outpatient [address] [place] [id number] 07/18/2024 Gary Ramírez PLAN OF TREATMENT Next Appt Details Provider Name:Gary Ramírez , 09/10/2024 08:30:00 AM, [address] [place] [address], [phone],
--- OUTSIDE RECORDS SUMMARY | 2024-09-10 07:10 | XMS_ITS ---
Author Organization [facility] Address [address] [place] [address] Care Team Providers Care Sail Lay Out Worker Name Role Phone Rach MAO, Wes Primary Care Provider Richarda Gary Miles Unavailable [phone] REASON FOR VISIT colon screening, egd Encounters Encounter Location Date Provider Diagnosis [facility] Outpatient [address] [place] [id number] 09/10/2024 Gary Ramírez PLAN OF TREATMENT Next Appt Details Provider Name:Gary Ramírez , 09/10/2024 08:30:00 AM, [address] [place], [place], [phone],
--- OUTSIDE RECORDS SUMMARY | 2024-09-10 07:11 | XMS_ITS ---
Author Organization [facility] Address [address] [place] [address] Care Team Providers Care Yeast Culture Developer Name Role Phone Rach MAO, Wes Primary Care Provider Gary Sharma Unavailable [phone] REASON FOR VISIT screening,hx polyps,gerd, hx ulcer Encounters Encounter Location Date Provider Diagnosis [facility] [place] [address] [place] [id number] 04/04/2024 Gary Ramírez PLAN OF TREATMENT Next Appt Details Provider Name:Gary Ramírez , 09/10/2024 08:30:00 AM, [address] [place] [address], [phone],
--- OUTSIDE RECORDS SUMMARY | 2024-09-10 07:11 | XMS_ITS | Patient Health Record ---
Author Organization [facility] Address [address] [place] [address] Care Team Providers Care Brim Pouncing Machine Operator Name Role Phone Wes Loyd MD Primary Care Provider Gary Sharma [phone] ALLERGIES Allergen (clinical drug ingredient) Drug/Non Drug [...] screening (Z12.11) Active confirmed Colon cancer screening (659639974) Problem GERD (gastroesophage al reflux disease) (K21.9) Active confirmed Gastroesophagea l reflux disease (588741215) Problem History of ulcer disease (Z87.898) Active confirmed Problem History of colon polyps (Z86.010) Active confirmed History of poly p of colon (229027509) Problem History of Helicobacter pylori infection (Z86.19) Active confirmed History of Helicobacter pylori infection (95687129862440914) VITAL SIGNS Temperature 98.0 degrees Fahrenheit 12/19/2023 Blood pressure diastolic 00 mm Hg 12/19/2023 Height 5 ft 7 in in 12/19/2023 Blood pressure systolic 000 mm Hg 12/19/2023 Weight 170 lb 8 oz lbs 12/19/2023 BMI 26.70 kg/m2 12/19/2023 Encounters Encounter Location Date Provider Diagnosis [facility] [place] [address] [place] [id number] 04/04/[address] [facility] [place] [address] [place] [id number] 07/18/[address] [facility] [place] [address] [place] [id number] 09/10/2024 Gary Ramírez [facility] [address] [place] [phone] 12/19/2023 Gary Ramírez Colon cancer screeni ng Z12.11 ; GERD (gastroesophageal reflux disease) K21.9 ; History of ulcer disease Z87.898 ; History of colon polyps Z86.010 and History of Helicobacter pylori infection Z86.19 [facility] [address] [place] [phone] 03/11/2024 Gary Ramírez ASSESSMENTS Encounter Date Diagnosis [...] Provider Name:Gary Ramírez , 09/10/2024 08:30:00 AM, [address] [place] [address], [phone], Insurance Providers Payer Name Payer Address Payer Phone Subscriber Number Group Number Insured Name Patient Relationship to Insured Coverage Start Date Coverage End Date [facility] [address] [address] [place] [address] [id number] CARLYN SALMERON Self - patient is the insured MEDICAL (GENERAL) HISTORY Medical History History ICD Code Hyperlipidemia Glaucoma Denies CT,DM,CVA,Lung disease,renal dise ase Bleeding ulcer in 2006 in [facility]--had an EGD-treated for H.pylori by his description Colonoscopy in 2006 with the reported re moval of some polyps Surgical History Surgery Date(Month/Year)
[2024-09-10 07:19] VITALS: BMI 25.5
[2024-09-10 07:33] VITALS: BP 125/70; PULSE 75; RESP 16; TEMP 36.4; O2SAT 97
[2024-09-10 07:41] VITALS: BMI 25.5
[2024-09-10] MEDS: Lactated Ringers 1,000 ML 100 ML IVCONT (07:47)
[2024-09-10 09:57] VITALS: BP 90/56; PULSE 79; RESP 16; TEMP 36.1; O2SAT 97
--- NOTE | 2024-09-10 10:01 | PM.OP ---
Brief Operative Note Date of Service: 09/10/24 Pre-op diagnosis: GERD, Hx of PUD, Screening Post-op diagnosis: other (Hiatal hernia, Diverticulosis) Procedure: EGD with biopsies, Colonoscopy to the cecum and TI Surgeon: Gary Ramírez MD Anesthesia: MAC Was an School Child Care Attendant used for this Procedure?: No Estimated blood loss (mL): 2.0 Pathology: other (A. Gastric antrum B. EG Junction at 38cm) Condition: stable Disposition: PACU
[2024-09-10 10:12] VITALS: BP 106/59; PULSE 79; RESP 16; TEMP 36.3; O2SAT 96
--- NOTE | 2024-09-10 10:19 | OP_ITS ---
DATE OF SERVICE: 09/10/2024 SURGEON: Gary Ramírez MD INDICATIONS: The patient presents for evaluation of gastroesophageal reflux, history of peptic ulcer disease, personal history of colon polyps, and colorectal cancer screening. Full consent has been obtained from him for this, including risks of bleeding and perforation. PREOPERATIVE DIAGNOSIS: POSTOPERATIVE DIAGNOSIS: PROCEDURE PERFORMED: Esophagogastroduodenoscopy with biopsies, and colonoscopy to the cecum and terminal ileum. ESTIMATED BLOOD LOSS: COMPLICATIONS: ANESTHESIA: Monitored anesthesia care. ASSISTANTS: SPECIMENS: PREOPERATIVE DIAGNOSES: Gastroesophageal reflux, history of ulcer disease, history of colon polyps, colorectal cancer screening. POSTOPERATIVE DIAGNOSES: Gastroesophageal reflux, history of ulcer disease, history of colon polyps, colorectal cancer screening, small hiatal hernia, diverticulosis, and internal hemorrhoids. DESCRIPTION OF PROCEDURE: The patient was placed in the left lateral decubitus position. The Olympus video gastroscope was passed in the posterior oropharynx and upper esophagus under direct vision. The scope was passed slowly into the distal esophagus. The gastroesophageal junction appeared at 38 cm. There was some very minimal irregularity, but no evidence of any esophagitis nor any definitive evidence of Gonzalez mucosa. The scope entered the stomach. There was a small hiatal hernia. The scope was advanced to pylorus and the duodenum was cannulated to the descending portion. The duodenum including the bulb appeared normal without mass or ulceration. The scope was withdrawn back to the stomach. The gastric antrum and body appeared normal with good peristalsis. Biopsies were obtained from the antrum. The scope was retroflexed, visualizing the proximal stomach carefully, which appeared normal, without any sign of mass or ulceration. The scope was straightened and withdrawn back to the esophagus. Biopsies were obtained at the EG junction at 38 cm. Proximal to this, the esophageal mucosa appeared normal. The scope was withdrawn from the patient. He was turned around for the colonoscopy. The digital rectal exam revealed no abnormalities. The Olympus video pediatric colonoscope was then entered into the rectum and advanced easily to the cecum. Once in the cecum, I did identify normal-appearing cecal pouch with appendiceal orifice and a normal-appearing ileocecal valve. The terminal ileum was cannulated and appeared normal. The scope was withdrawn back in the colon. The entire cecum and ileocecal valve appeared normal. The scope was then slowly withdrawn assessing all mucosal surfaces carefully. Preparation was excellent. I did not visualize any sign of polyps, colitis, nor angiodysplasias. There was a mild amount of sigmoid diverticulosis. In the rectum, scope was retroflexed, visualizing internal hemorrhoids, but no other pathology. The rectal mucosa appeared normal. Scope was straightened and withdrawn from the patient. He tolerated the procedure well and was returned to the recovery area in stable condition. IMPRESSION: 1. Small hiatal hernia, gastroesophageal reflux. 2. History of ulcer disease, rule out Helicobacter pylori. 3. Diverticulosis. 4. Internal hemorrhoids. PLAN: The results of the biopsy will be checked. Given today's negative colonoscopy, and the fact that his polyps were removed back in 2006, as well as the fact that he does not have any family history of colon cancer, I do not think he would need any further screening colonoscopies. He is not having any particular significant upper GI complaints and I do not think he needs to be on any specific treatment for his reflux. He will, otherwise, see me on a p.r.n. basis. This has been discussed with his . MD JOSUE Waters/JELLY / [id number]
== END 2024-09-10 10:55 | disposition home or self-care (01) ==
PROVIDERS: PCP Internal Medicine; Visit Provider Internal Medicine
PROC: (CPT 43239; principal; 2024-09-10 08:30)
DX: Z12.11 Encounter for screening for malignant neoplasm of colon (principal); Z86.0101 Personal history of adenomatous and serrated colon polyps; K57.30 Diverticulosis of large intestine without perforation or abscess without bleeding; K64.8 Other hemorrhoids; K21.9 Gastro-esophageal reflux disease without esophagitis; K44.9 Diaphragmatic hernia without obstruction or gangrene; Z87.11 Personal history of peptic ulcer disease; Z86.19 Personal history of other infectious and parasitic diseases; E78.5 Hyperlipidemia, unspecified; H40.9 Unspecified glaucoma; Z79.899 Other long term (current) drug therapy
CPT/HCPCS: 43239; G0105; 88305; 88342; J1100; J1596; J2003; J2704

== ENCOUNTER 2024-12-04 14:27 | Outpatient (REF) | payer MEDICARE, SELFPAY ==
[2024-12-04 17:38] LABS: Influenza A PCR NEGATIVE (Negative); Influenza B PCR NEGATIVE (Negative); Resp Syncy Virus RNA Qual PCR NEGATIVE (Negative); SARS COV2 PCR INHOUSE NEGATIVE (Negative)
== END 2024-12-04 14:28 | disposition home or self-care (01) ==
LOC: HO.LAB 14:27
PROVIDERS: Nurse Practitioner Family; PCP Internal Medicine
DX: J06.9 Acute upper respiratory infection, unspecified (principal); R05.3 Chronic cough
CPT/HCPCS: 0241U; 99212

== ENCOUNTER 2024-12-04 14:27 | Outpatient (AMB) | payer MEDICARE, SELFPAY ==
--- NOTE | 2024-12-04 14:40 | AM.OFFWIN_ITS ---
Intake Vital Signs 12/04/24 14:42 Weight 164 lb BP 108/60 Blood Pressure Location Rt brachial Position Sitting Pulse 80 Pulse Source Pulse Oximeter Pulse Oximetry (%) 98 Oxygen Delivery Method Room Air Intake Visit Reasons: EP-sore throat Intake Note: Patient here for cough and sore throat that has been present for at least 3 weeks. Patient Tobacco Use Status: Never used Tobacco Allergies No Known Allergies Allergy (Verified 12/04/24 14:42) Do you need a note to return to daycare/school/sports/work: No HPI HPI Comments History of Present Illness Details 69 y/o male patient who presents to the walk in clinic with c/o URI symptoms x 3 weeks. Reports Cough, chest tightness, and Sore-throat. [facility] Medical History (Updated 12/04/24 @ 14:57 by Liz Finley NP) Cough Acute respiratory disease Peptic ulcer Glaucoma Hyperlipidemia Surgical History History of esophagogastroduodenoscopy (EGD) H/O colonoscopy Family History Mother No problems noted. Father No problems noted. Social History Household Members: Spouse Housing: Apartment Are you a primary post acute care nurse to a significant other at home: No Do you presently have visiting nurse or other home services: No Alcohol intake: never Patient Tobacco Use Status: Never used Tobacco e-Cigarette/Vaping Use: Never Used Second Hand Smoke Exposure: No service: No Current occupational status: employed Cognitive needs: No Hearing needs: No Vision needs: Yes Review of Systems Const All systems reviewed & are unremarkable except as noted in HPI and below Physical Exam Vital Signs: Last Vital Signs Pulse 80 12/04/24 14:42 BP 108/60 12/04/24 14:42 Pulse Ox 98 12/04/24 14:42 Oxygen Delivery Method Room Air 12/04/24 14:42 Const General: cooperative and no acute distress Orientation/consciousness: patient oriented x3 HEENT Head: Yes normocephalic Ears: external ears normal and TM's normal bilaterally General nose exam: Normal external nose present and Nasal discharge present Face and sinus: Yes sinuses nontender Mouth: moist mucous membranes Throat: Yes uvula midline Resp Effort & Inspection: normal respiratory effort, able to speak in complete sentences and Actively coughing Quality: dry Auscultation: clear to auscultation bilaterally, no crackles, no rales, no rhonchi and no wheezes Cardio Heart sounds: S1 normal heart sound present and S2 normal heart sound present Neuro General: patient oriented x3 Assessment & Plan Assessment & Plan (1) Acute respiratory disease: Code(s): J06.9 - Acute upper respiratory infection, unspecified Plan: Ordered SARs (2) Cough: Code(s): R05.9 - Cough, unspecified Qualifiers: Cough type: chronic Qualified Code(s): R05.3 - Chronic cough Plan: OTC cough remedies Ordered Azithromycin and cough medicine. Rest and Hydrate well with warm fluids. Orders: Orders SARS-CoV2/FLU/RSV Today J06.9 - Acute upper respiratory infection, unspecified Medications: New benzonatate 200 mg (2 x 100 mg) PO BID 60 caps 0RF R05.3 - Chronic cough azithromycin 500 mg PO DAILY 3 days 3 tabs 0RF J06.9 - Acute upper respiratory infection, unspecified Coding Level of Care Code Est Pt Level 4 (56045) Diagnoses Acute respiratory disease J06.9 Chronic cough R05.3 Cough type: chronic Time Spent (min) 20
[2024-12-04 14:42] VITALS: BP 108/60; PULSE 80; O2SAT 98
--- OUTSIDE RECORDS SUMMARY | 2024-12-04 18:18 | XMS_ITS ---
[facility] Address [address] [place] [address] Care Team Providers Care Sales Route Driver Name Role Phone Rach MAO, Wes Primary Care Provider Richarda Gary Miles Unavailable [phone] REASON FOR VISIT colon screening, egd Problems Problem Type SNOMED Code ICD Code Onset Dates Problem Status W/U Status Risk Notes Problem Diverticular disease of colon (144337784) Diverticulosis of large intestine without perforation or abscess without bleeding (K57.30) Active confirmed Problem Gastroesophageal reflux disease (062734376) Esophageal reflux disease (K21.9) Active confirmed Encounters Encounter Location Date Provider Diagnosis [facility] [place] [address] [place], [place] [phone] 09/10/2024 Gary Ramírez Encounter for scre ening colonoscopy Z12.11 ; History of colon polyps Z86.0100 ; Diverticulosis of large intestine without perforation or abscess without bleeding K57.30 ; Other hemorrhoids K64.8 ; Esophageal reflux disease K21.9 ; Hiatal hernia K44.9 and History of gastric ulcer Z87.11 Assessments Encounter Date Diagnosis (ICD Code) Assessment Notes Treatment Notes Treatment Clinical Notes Section Notes 09/10/2024 Encounter for screening colonoscopy (ICD-10 - Z12.11) 09/10/2024 History of colon polyps (ICD-10 - Z86.0100) 09/10/2024 Diverticulosis of large intestine without perforation or abscess without bleeding (ICD-10 - K57.30) 09/10/2024 Other hemorrhoids (ICD-10 - K64.8) 09/10/2024 Esophageal reflux disease (ICD-10 - K21.9) 09/10/2024 Hiatal hernia (ICD-10 - K44.9) 09/10/2024 History of gastric ulcer (ICD-10 - Z87.11) Plan Of Treatment No Information Progress Notes * CARLYN SALMERON MDOB:[birth year] (69 yo M)Acc No.[id number]:09/10/2024 EGD and COL/MAC Patient:?JARONCARLYN Miller Provider:?Gary Ramírez MD :1955???Age:69 Y???Sex:Male Natan e:09/10/2024 Address:[address] [place] [address] Pcp:Wes Loyd MD Subjective: * Chief Complaints: * ???1. Colon screening, egd. * Medical History:? Objective: * Vitals:? Assessment: * Assessment: 1.?Encounter for screening c olonoscopy - Z12.11 (Primary)???2.?History of colon polyps - Z86.0100???3.?Diverticulosis of large intestine without perforation or abscess without bleeding - K57.30???4.?Other hemorrhoids - K64.8? ?5.?Esophageal reflux disease - K21.9???6.?Hiatal hernia - K44.9???7.?History of gastric ulcer - Z87.11??? Plan: * Treatment: * Procedure Codes:?G0105 COLOR EC CANCR SCR; COLNSCPY HI RISK, 0529F INTRVL 3+YRS PTS CLNSCP DOCD, 0528F RCMND FLW-UP 10 YRS DOCD, Modifiers: 1P , 30872 UPPER GI ENDOSCOPY, BIOPSY * * The named appointment provid er may or may not be the originator of this progress note, and it is not deemed complete until electronically signed by the appointment provider. Sign off status: Pending * Provider:?Gary Ramírez MD Date:? 024 Generated for Zeus bonds/Florecita/eTransmitting on:?12/04/2024 06:18 PM EDT
--- OUTSIDE RECORDS SUMMARY | 2024-12-04 18:18 | XMS_ITS ---
Author Organization [facility] Address [address] [place] [address] Care Team Providers Care Residential Builder Name Role Phone Rach MAO, Wes Primary Care Provider Gary Sharma [phone] REASON FOR VISIT screening,hx polyps,gerd, hx ulcer Encounters Encounter Location Date Provider Diagnosis [facility] [place] Out[place] [address] [place], [place] [phone] 07/18/2024 Gary Ramírez Plan Of Treatment No Information Progress Notes * CARLYN SALMERON MDOB:[birth year] (69 yo M)Acc No.[id number]:07/18/2024 EGD and COL/MAC Patient:?CARLYN SALMERON Provider:?Gary Ramírez MD :1955???Age:69 Y???Sex:Male Natan e:07/18/2024 Address:[address] [place], [place] [phone] Pcp:Wes Loyd MD Subjective: * Chief Complaints: * ???1. Screening,hx polyps,ge rd, hx ulcer. * Medical History:? Objective: * Vitals:? Assessment: Plan: * Treatment: * * The named appointment provid er may or may not be the originator of this progress note, and it is not deemed complete until electronically signed by the appointment provider. Sign off status: Pending * Provider:?Gary Ramírez MD Date:? 024 Generated for Ayalai vamshi/Florecita/eTransmitting on:?12/04/2024 06:18 PM EDT
--- OUTSIDE RECORDS SUMMARY | 2024-12-04 18:18 | XMS_ITS ---
Author Organization [facility] Address [address] [place] [address] Care Team Providers Care Powder Monkey Name Role Phone Rach MAO, Wes Primary Care Provider Gary Sharma [phone] REASON FOR VISIT screening,hx polyps,gerd, hx ulcer Encounters Encounter Location Date Provider Diagnosis [facility] [place] [address] [place], [place] [phone] 04/04/2024 Gary Ramírez Plan Of Treatment No Information Progress Notes * CARLYN SALMERON MDOB:[birth year] (69 yo M)Acc No.[id number]:04/04/2024 EGD and COL/MAC Patient:?CARLYN SALMERON Provider:?Gary Ramírez MD :1955???Age:68 Y???Sex:Male Natan e:04/04/2024 Address:[address] [place], [place] [phone] Pcp:Wes Loyd MD Subjective: * Chief Complaints: [...]
--- OUTSIDE RECORDS SUMMARY | 2024-12-04 18:18 | XMS_ITS | Patient Health Record ---
Author Organization [facility] Address [address] [place] [address] Care Team Providers Care Gas Regulator Repairer Helper Name Role Phone Rach MAO, Wes Primary Care Provider Gary Sharma [phone] Allergies Allergen (clinical drug ingredient) Drug/Non Drug Allergy documented on EMR Reaction Allergy Type Onset Date Status hayfever (uncoded) Unknown Allergy A ctive Results Component Value Reference Range Notes Pathology (Not yet reviewed by provider) Interpretation: Performing Lab:[facility], [address] [place] [phone] Notes/Report: Name: Carlyn Ruiz Age/Sex: 69/M : 1955 Unit#: [id number] Attend Dr: Gary Ramírez MD Re09/10/24 Status : [facility] Location: [facility] Disch: SPEC : [id number] RECD : 09/10/24 STATUS: VAHE SMITH NUM: [id number] YESSENIA: 09/10/2416 [facility] DR: Gary Ramírez MD ENTERED: 09/10/24 SP TYPE: Surgical OTHR DR: Wes Loyd MD ORDERED: HE Stain/6, Gross Micro L4/2, IHC, H. pylori, Eso bx BA w/exc Addendum Addendum 1 Entered: 09/15/24 Immunostain for H. p ylori on A is negative. Control stains appropriately. Addendum Signed ____ __(signature on file) Rosenda Dallas 09/15/241905 Diagnosis A. Gastric antrum, b iopsy: Gastric antral mucosa with congestion and minimal chronic inactive gastritis; negative for intestinal metaplasia and dysplasia. B. Esophagogastric j unction, at 38 cm, biopsy: Squamous mucosa with spongiosis and focal intraepithelia l neutrophils and rare intraepithelial eosinophils (up to 1 per high- power field) consist ent with esophagitis, and columnar mucosa with mild inflammation and focal intestinal met aplasia; negative for dysplasia. Comment: (A): Immunostain for H. pylori pending; addendum to follow. 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 Clinical and endoscopic correlation is advised. Clinical History Pre-Op Dx: Reflux, s creening, hx of polyps Post-Op Dx: Hiatal h ernia, reflux, diverticulosis, hemorrhoids Microscopic Description Microscopic sections reviewed. Material Received A. Gastric antrum B. EG junction @ 38 cm CONTINUED ON NEXT PAGE Name: Carlyn Ruiz Age/Sex: 69/M : 1955 Unit#: [id number] Attend Dr: Gary Ramírez MD Re09/10/24 Status : [facility] Location: [facility] Disch: SPEC : [id number] RECD : 09/10/24 STATUS: VAHE SMITH NUM: [id number] YESSENIA: 09/10/24 [facility] DR: Gary Ramírez MD ENTERED: 09/10/24-07 14 SP TYPE: Surgical OTHR DR: Wes Loyd MD ORDERED: HE Stain/6, Gross Micro L4/2, IHC, H. pylori, Eso bx BA w/exc Gross Description Received in two parts. Part A: Received in formalin labeled ?gastric antrum? are 3 mccracken-pink irregular tissue fragments ranging fr om 0.2-0.3 cm, submitted in toto in a cassette labeled A. Part B: Received in formalin labeled ?EG junction at 38 cm? are 5 mccracken-pink irregular tissue fragments ranging fr om minute to 0.25 cm, submitted in toto in a cassette labeled B. Special studies orde red and performed: Immunostain for H. pylori on A1. Copies To: Wes Loyd MD [facility],[place] [address] [place], [place] [phone] Gary Ramírez MD [facility] [address] [place], [place] [phone] Signed (si gnature on file) Rosenda Dallas 09/11/24 1642 END OF REPORT Reason For Referral No Information Medications Medication SIG (Take, Route, Frequency, Duration) Notes Start Date End Date Status Latanoprost 0.005 % INSTILL 1 DROP INTO BOTH EYES AT BEDTIME Ophthalmic for 25 Active Atorvastatin Calcium 20 MG TAKE 1 TABLET BY MOUTH EVERY DAY Oral for 90 Active Immunizations Vaccine Route Administration Date Status Comme nts Influenza Unknown 07/17/2023 Administered Social History Tobacco Use: Social History Observation Description Date Details (start date - stop date) Never Smoker NA - NA Tobacco Use/Smoking Question Answer Notes Patient is a nonsmoker Alcohol Screen Question Answer Notes Did you have a drink containing alcohol in the p ast year? No Points 0 Interpretation Negative Section Notes: Originally from [place] Problems Problem Type SNOMED Code ICD Code Onset Dates Problem Status W/U Status Risk Notes Problem Colon cancer screening (873633563) Colon cancer screening (Z12.11) Active confirmed Problem Diverticular disease of colon (886406088) Diverticulosis of large intestine without perforation or abscess without bleeding (K57.30) Active confirmed Problem History of polyp of colon (173972518) History of colon polyps (Z86.010) Active confirmed Problem Gastroesophageal reflux disease (829171990) GERD (gastroesophageal reflux disease) (K21.9) Active confirmed Problem Gastroesophageal reflux disease (022812983) Esophageal reflux disease (K21.9) Active confirmed Problem History of ulcer disease (Z87.898) Active confirmed Problem History of Helicobacter pylori infection (41166142507737221) History of Helicobacter pylori infection (Z86.19) Active confirmed Vital Signs Temperature 98.0 degrees Fahrenheit 12/19/2023 Blood pressure diastolic 00 mm Hg 12/19/2023 Height 5 ft 7 in in 12/19/2023 Blood pressure systolic 000 mm Hg 12/19/2023 Weight 170 lb 8 oz lbs 12/19/2023 BMI 26.70 kg/m2 12/19/2023 Encounters Encounter Location Date Provider Diagnosis [facility] [place] [facility] [place] [address] [place] [phone] 09/10/2024 Gary Ramírez Encounter for screen ing colonoscopy Z12.11 ; History of colon polyps Z86.0100 ; Diverticulosis of large intestine without perforation or abscess without bleeding K57.30 ; Other hemorrhoids K64.8 ; Esophageal reflux disease K21.9 ; Hiatal hernia K44.9 and History of gastric ulcer Z87.11 [facility] [address] [place] [phone] 12/19/2023 Gary Ramírez Colon cancer screeni ng Z12.11 ; GERD (gastroesophageal reflux disease) K21.9 ; History of ulcer disease Z87.898 ; History of colon polyps Z86.010 and History of Helicobacter pylori infection Z86.19 [facility] [address] [place] [phone] 03/11/2024 Gary Darrell Assessments Encounter Date Diagnosis (ICD Code) Assessment Notes Treatment Notes Treatment Clinical Notes Section Notes 09/10/2024 Encounter for screening colonoscopy (ICD-10 - Z12.11) 09/10/2024 History of colon polyps (ICD-10 - Z86.0100) 12/19/2023 Colon cancer screening (ICD-10 - Z12.11) Overall, Mohsen appears quite well. He is not having any new nor worrisome GI complaints. I did recommend a colonoscopy for further screening purposes given his reported last exam being in 2006 with removal of at least 2 or 3 polyps. We did review the rationale for that ion regard to colorectal cancer prevention. He will also undergo a followup upper endoscopy on that day given his history of some reflux, occasional dysphagia, and previous H. pylori infection. He was interested in having that done to be sure everything is okay given his previous history of GI bleeding and ulcer disease. I told him that we could obtain gastric biopsies to reinspect for H. pylori. Full consent was obtained from him for both procedures, including risks of bleeding and perforation. The procedure will be done with monitored anesthesia care. Mohsen was comfortable with this plan. Thank you again for allowing me to participate in Mohsen's care. I shall continue to keep you advised of his progress. 12/19/2023 GERD (gastroesophageal reflux disease) (ICD-10 - K21.9) Overall, Mohsen appears quite well. He is not having any new nor worrisome GI complaints. I did recommend a colonoscopy for further screening purposes given his reported last exam being in 2006 with removal of at least 2 or 3 polyps. We did review the rationale for that ion regard to colorectal cancer prevention. He will also undergo a followup upper endoscopy on that day given his history of some reflux, occasional dysphagia, and previous H. pylori infection. He was interested in having that done to be sure everything is okay given his previous history of GI bleeding and ulcer disease. I told him that we could obtain gastric biopsies to reinspect for H. pylori. Full consent was obtained from him for both procedures, including risks of bleeding and perforation. The procedure will be done with monitored anesthesia care. Mohsen was comfortable with this plan. Thank you again for allowing me to participate in Mohsen's care. I shall continue to keep you advised of his progress. 09/10/2024 Diverticulosis of large intestine without perforation or abscess without bleeding (ICD-10 - K57.30) 12/19/2023 History of ulcer disease (ICD-10 - Z87.898) Overall, Mohsen appears quite well. He is not having any new nor worrisome GI complaints. I did recommend a colonoscopy for further screening purposes given his reported last exam being in 2006 with removal of at least 2 or 3 polyps. We did review the rationale for that ion regard to colorectal cancer prevention. He will also undergo a followup upper endoscopy on that day given his history of some reflux, occasional dysphagia, and previous H. pylori infection. He was interested in having that done to be sure everything is okay given his previous history of GI bleeding and ulcer disease. I told him that we could obtain gastric biopsies to reinspect for H. pylori. Full consent was obtained from him for both procedures, including risks of bleeding and perforation. The procedure will be done with monitored anesthesia care. Mohsen was comfortable with this plan. Thank you again for allowing me to participate in Mohsen's care. I shall continue to keep you advised of his progress. 09/10/2024 Other hemorrhoids (ICD-10 - K64.8) 12/19/2023 History of colon polyps (ICD-10 - Z86.010) Overall, Mohsen appears quite well. He is not having any new nor worrisome GI complaints. I did recommend a colonoscopy for further screening purposes given his reported last exam being in 2006 with removal of at least 2 or 3 polyps. We did review the rationale for that ion regard to colorectal cancer prevention. He will also undergo a followup upper endoscopy on that day given his history of some reflux, occasional dysphagia, and previous H. pylori infection. He was interested in having that done to be sure everything is okay given his previous history of GI bleeding and ulcer disease. I told him that we could obtain gastric biopsies to reinspect for H. pylori. Full consent was obtained from him for both procedures, including risks of bleeding and perforation. The procedure will be done with monitored anesthesia care. Mohsen was comfortable with this plan. Thank you again for allowing me to participate in Mohsen's care. I shall continue to keep you advised of his progress. 09/10/2024 Esophageal reflux disease (ICD-10 - K21.9) 12/19/2023 History of Helicobacter pylori infection (ICD-10 - Z86.19) Overall, Mohsen appears quite well. He is not having any new nor worrisome GI complaints. I did recommend a colonoscopy for further screening purposes given his reported last exam being in 2006 with removal of at least 2 or 3 polyps. We did review the rationale for that ion regard to colorectal cancer prevention. He will also undergo a followup upper endoscopy on that day given his history of some reflux, occasional dysphagia, and previous H. pylori infection. He was interested in having that done to be sure everything is okay given his previous history of GI bleeding and ulcer disease. I told him that we could obtain gastric biopsies to reinspect for H. pylori. Full consent was obtained from him for both procedures, including risks of bleeding and perforation. The procedure will be done with monitored anesthesia care. Mohsen was comfortable with this plan. Thank you again for allowing me to participate in Mohsen's care. I shall continue to keep you advised of his progress. 09/10/2024 Hiatal hernia (ICD-10 - K44.9) 09/10/2024 History of gastric ulcer (ICD-10 - Z87.11) Plan Of Treatment Pending Test Test Name Order Date Pathology 09/10/2024 Future Test Test Name Order Date UPPER GI ENDOSCOPY 12/19/2023 COLONOSCOPY 12/19/2023 Insurance Providers Payer Name Payer Address Payer Phone Subscriber Number Group Number Insured Name Patient Relationship to Insured Coverage Start Date Coverage End Date [facility] [address] [address] [place] [address] [id number] CARLYN RUIZ Self - patient is the insured Medical (General) History Medical History History ICD Code Hyperlipidemia Glaucoma Denies [place],DM,CVA,Lung disease,renal dise ase Bleeding ulcer in 2006 in [facility]--had an EGD-treated for H.pylori by his description Colonoscopy in 2006 with the reported re moval of some polyps Surgical History Surgery Date(Month/Year)
== END 2024-12-04 15:06 | disposition home or self-care (01) ==
PROVIDERS: PCP Internal Medicine; Visit Provider Nurse Practitioner Family
DX: J06.9 Acute upper respiratory infection, unspecified (principal); R05.3 Chronic cough

== ENCOUNTER 2025-04-22 10:07 | Outpatient (AMB) | payer MEDICARE, SELFPAY ==
--- OUTSIDE RECORDS SUMMARY | 2025-04-22 10:55 | XMS_ITS | Patient Health Record ---
Author Organization [facility] Address [address] [place] [address] Care Team Providers Care Equipment Maintenance Technician Name Role Phone Wes Loyd MD Primary Care Provider Gary Sharma [phone] Allergies Allergen (clinical drug ingredient) Drug/Non Drug Allergy documented on EMR Reaction Allergy Type Onset Date Status hayfever (uncoded) Unknown Allergy A ctive Results Component Value Reference Range Notes Pathology (Not yet reviewed by provider) Interpretation: Performing Lab:[facility], [address] [place] [phone] Notes/Report: Reason For Referral No Information Medications Medication [...] 0 Interpretation Negative Section Notes: Originally from [place] Problems Problem Type SNOMED Code ICD Code Onset Dates Problem Status W/U Status Risk Notes Problem Colon cancer screening (045916265) Colon cancer screening (Z12.11) Active confirmed Problem Diverticular disease of colon (804576724) Diverticulosis of large intestine without perforation or abscess without bleeding (K57.30) Active confirmed Problem History of polyp of colon (338854005) History of colon polyps (Z86.010) Active confirmed Problem Gastroesophageal reflux disease (960400802) GERD (gastroesophageal reflux disease) (K21.9) Active confirmed Problem Gastroesophageal reflux disease (546567713) Esophageal reflux disease (K21.9) Active confirmed Problem History of ulcer disease (Z87.898) Active confirmed Problem History of Helicobacter pylori infection (97797287804503147) History of Helicobacter pylori infection (Z86.19) Active confirmed Encounters Encounter Location Date Provider Diagnosis [facility] [place] Out[place] [address] [place] [phone] 09/10/2024 Gary Ramírez Encounter for scre ening [...] Insured Coverage Start Date Coverage End Date [facility] [address] [place] [address] [id number] CARLYN SALMERON Self - patient is the insured Medical (General) History Medical History History ICD Code Hyperlipidemia Glaucoma Denies [place],DM,CVA,Lung disease,renal dise ase Bleeding ulcer in 2006 in [facility]--had an EGD-treated for H.pylori by his description Colonoscopy in 2006 with the reported re moval of some polyps Surgical History Surgery Date(Month/Year)
--- OUTSIDE RECORDS SUMMARY | 2025-04-22 10:55 | XMS_ITS | Clinical Summary ---
Author Organization [facility] Address [address] [place], [place] [phone] Phone Care Team Providers Care Success Coach Name Role Phone Wes Loyd MD Primary Care Provider [phone] Allergies No known active allergies Medications atorvastatin (LIPITOR) 20 MG tablet Take 20 mg by mouth daily. 3 Active albuterol 90 mcg/actuation inhaler INHALE 2 PUFFS EVERY 6 HOURS NEEDED FOR SHORTNESS OF BREATH OR WHEEZING 3 Active Active Problems No known active problems Social History Tobacco Use Types Packs/Day Years Used Date Smoking Tobacco: Never Smokeless Tobacco: Never Alcohol Use Standard Drinks/Week Comments Yes 0 (1 standard drink = 0.6 oz pur e alcohol) occasionally Education Answer Date Recorded Are you interested in more education? Not on perez e 01/20/2023 Are you concerned about learning? Not on file 01/20/2023 No 01/20/2023 No 01/20/2023 Digital Access Answer Date Recorded No 02/20/2023 No 02/20/2023 Reliable internet access at home? Not on file 02/20/2023 Device with a working camera? Not on file Sex and Gender Information Value Date Recorded Sex Assigned at Not on file Legal Sex Male 11:28 AM EST Gender Identity Not on file Sexual Orientation Not on file Last Filed Vital Signs Vital Sign Reading Time Taken Comments Blood Pressure 120/64 12/02/2022 12:14 PM EST Pulse 86 12/02/2022 12:14 PM EST Temperature 36.4 C (97.6 F) 12/02/2022 12:14 PM EST Respiratory Rate 16 12/02/2022 12:14 PM EST Oxygen Saturation 94% 12/02/2022 12:14 PM EST Inhaled Oxygen Concentration - - Weight 65.8 kg (145 lb) 12/02/2022 12:14 PM EST Height 167.6 cm (5' 6 ) 12/02/2022 12:14 PM EST Body Mass Index 23.4 12/02/2022 12:14 PM EST Plan of Treatment Health Maintenance Due Date Last Done Comments Adult Td,Tdap Booster 1955 DEPRESSION SCREENING 1966 HEPATITIS C SCREENING 1972 COLOGUARD 1999 COLONOSCOPY 1999 COLORECTAL CANCER SCREENING 1999 FIT TEST 1999 FOBT 1999 SIGMOIDOSCOPY 1999 VIRTUAL COLONOSCOPY 1999 PNEUMOCOCCAL VACCINES (50+ years) (1 of 1 - PCV) 2004 ZOSTER VACCINES (1 of 2) 2004 COVID-19 VACCINE (5 - season) 2024 07/20/2022, 07/07/2021, 12/29/2020, Additional history exists LIPID PANEL 11/13/2027 11/13/2022 RSV VACCINE (1 - 1-dose 75+ series) 2029 SMOKING STATUS SCREENING (Once After 26 Yrs) Completed 12/02/2022 HEPATITIS A VACCINES Aged Out No long er eligible based on patient's age to complete this topic HIB VACCINES Aged Out No longer eligi ble based on patient's age to complete this topic MENINGOCOCCAL VACCINES (ACWY) Aged Out No longer eligible based on patient's age to complete this topic MENINGOCOCCAL VACCINES (B) Aged Out N o longer eligible based on patient's age to complete this topic Medical Devices Not on file Insurance [facility] RE[facility] RE[facility] REPL[facility]IC[facility] REPLAC[facility] RE[facility] MEDIC[facility] REPLACEMENT Care Teams Success Coach Relationship Specialty Start Date End Date Wes Loyd MD [address] [place] [address] [place] [address] PCP - General Internal Medicine 12/02/22 Additional Source Comments The information contained in this document represents components of the legal health record. It is not the complete legal health record.[facility]
[2025-04-22 11:03] VITALS: BP 110/62; PULSE 81; TEMP 36.8; O2SAT 97; BMI 26.2
--- NOTE | 2025-04-22 11:03 | AM.OFFWIN_ITS ---
Intake Vital Signs 04/22/25 11:03 Height 5 ft 7 in Weight 167 lb BMI 26.2 BP 110/62 Blood Pressure Location Lt brachial Position Sitting Pulse 81 Pulse Source Pulse Oximeter Temp 98.2 F Temp Source Oral Pulse Oximetry (%) 97 Oxygen Delivery Method Room Air Intake Visit Reasons: EP cough Intake Note: presents with ongoing cough and chest congestion, mild sore throat Patient Tobacco Use Status: Never used Tobacco Allergies No Known Allergies Allergy (Verified 04/22/25 11:08) Do you need a note to return to daycare/school/sports/work: No HPI HPI Comments History of Present Illness Details History - The patient is a 69-year-old male pres enting with a persistent cough. - Cough duration: Three to four months, treated with Z-Beck. - Symptoms: No fever, shortness of breat h, or wheezing; white mucus present. - Previous episodes of a chronic cough h ave improved with Augmentin. - No smoking, vaping, or asthma/COPD his tory. - Pulmonary function tests in 2022 were essentially Normal, was RXd albuterol inhaler. - Seasonal allergies: Managed with daily medication but has some throat itchiness Physical Exam General: Cooperative, healthy appearing, comfortable and no acute distress Orientation/consciousness: Patient oriented x3 Limitations: No limitations Head: Normal to inspection Ears: Hearing grossly normal bilaterally, external ears normal and TM's normal bilaterally Nose: Normal external nose present, Normal nares present and No nasal discharge present Face and sinus: Normal facial exam and Yes sinuses nontender Mouth: Normal oral and palatal mucosa present and moist mucous membranes Throat: Yes tonsils normal, Yes uvula midline. Posterior oropharynx erythema, no exudates Eyes: Appearance normal, both eyes and all related structures Neck: Normal visual inspection, full ROM Respiratory: Clear to auscultation bilaterally. Normal respiratory effort, able to speak in complete sentences, Actively coughing, no respiratory distress, not tachypneic, no tripod positioning and no use of accessory muscles Cardiovascular: Regular rate and rhythm. Normal S1 and S2 Skin: No rashes or lesions noted Neuro: Patient oriented x3 Extremities: Normal to inspection and Yes no clubbing, cyanosis or edema PFSH Medical History (Updated 12/04/24 @ 14:57 by Liz Finley NP) Cough Acute respiratory disease Peptic ulcer Glaucoma Hyperlipidemia Surgical History (Updated 01/28/25 @ 08:35 by Shari Lopez) History of esophagogastroduodenoscopy (EGD) H/O colonoscopy (~09/10/24) Family History Mother No problems noted. Father No problems noted. Social History Household Members: Spouse Housing: Apartment Are you a primary out of school hours care worker to a significant other at home: No Do you presently have visiting nurse or other home services: No Alcohol intake: never Patient Tobacco Use Status: Never used Tobacco e-Cigarette/Vaping Use: Never Used Second Hand Smoke Exposure: No service: No Current occupational status: employed Cognitive needs: No Hearing needs: No Vision needs: Yes Review of Systems Const All systems reviewed & are unremarkable except as noted in HPI and below Physical Exam Vital Signs: Last Vital Signs Temp 98.2 F 04/22/25 11:03 Pulse 81 04/22/25 11:03 BP 110/62 04/22/25 11:03 Pulse Ox 97 04/22/25 11:03 Oxygen Delivery Method Room Air 04/22/25 11:03 BMI result Body Mass Index 26.2 Results AMB Rapid Strep AMB Rapid Strep Negative Last Edit by Mary Spears MA on 04/22/25 11:29 Results Reviewed Results Reviewed: Laboratory Last Values Strep Scn Rapid Clinic Negative 04/22/25 11:27 Assessment & Plan Assessment & Plan (1) Chronic cough: Comment: THIS GENTLEMAN HAD RECURRENT BOUTS OF COUGH DURING THE LAST WINTER. MOST LIKELY HE HAD POST INFECTIOUS COUGH, AND AFTER EFFECTIVE USE OF ANTIBIOTIC THE COUGH HAD RESOLVED ALMOST COMPLETELY. HE CONTINUES TO HAVE MILD INTERMITTENT COUGH PROBABLY DUE TO REACTIVE AIRWAYS. HE HAS NOT NEEDED TO USE ALBUTEROL INHALER. PULMONARY FUNCTION TEST IS ESSENTIALLY NORMAL. TX: I EXPLAINED THE RESULTS OF PULMONARY FUNCTION TEST TO HIM, REASSURED THAT HIS LUNGS WERE NORMAL. COUGH IS PROBABLY MILD SECONDARY TO REACTIVE AIRWAYS, POST INFECTIOUS . AND MAY LINGER ON FOR A FEW WEEKS ,EACH TIME AFTER HE HAS RESPIRATORY INFECTION. HE WILL USE ALBUTEROL HFA 1 OR 2 PUFFS Q 4-6 HOURS ONLY P.R.N. IF HE HAS PERSISTENT BOUT OF COUGH OR WHEEZING. NO NEED OF ANY REGULAR APPOINTMENT , BUT HE MAY CALL US IF THE COUGH BE COMES BOTHERSOME. Code(s): R05.3 - Chronic cough Plan: Plan - VSS, pt well appearing and PE unremarkable - Rapid strep negative - Prescribed Augmentin and inhaler for cough management as this has worked for him in the past. - Monitor response to treatment and follow up if symptoms persist. - Continue daily allergy medication for seasonal allergies. - If it doesn't resolve, should get CXR. Patient was informed and verbally consented to the use of an ambient scribe for clinic note documentation during this visit Orders: Orders AMB Rapid Strep Screen Today Alexsandra Ignacio PA-C Z13.9 - Encounter for screening, unspecified Medications: New albuterol sulfate 90 mcg/actuation 2 puffs inhalation Q6H PRN 8.5 grams 0RF shortness of breath or wheezing or cough Angeles Brar PA-C amoxicillin-pot clavulanate 875-125 mg 1 tab PO Q12H 14 tabs 0RF Angeles Brar PA-C Coding Level of Care Code Est Pt Level 3 (65661) Diagnoses Chronic cough R05.3
== END 2025-04-22 12:09 | disposition home or self-care (01) ==
PROVIDERS: PCP Internal Medicine; Visit Provider Physician Assistant
DX: Z13.9 Encounter for screening, unspecified (principal); R05.3 Chronic cough

== ENCOUNTER → 2025-04-22 10:07 | Outpatient (BNVA) | payer MEDICARE, SELFPAY | PROVIDERS: PCP Internal Medicine; Visit Provider Physician Assistant | DX: R05.3 Chronic cough (principal) | CPT/HCPCS: 87880; 99212 ==

== ENCOUNTER 2025-08-24 12:07 | Outpatient (AMB) | payer MEDICARE, SELFPAY ==
--- NOTE | 2025-08-24 12:25 | A.OFFPC_ITS ---
Vital Signs 08/24/25 12:26 Height 5 ft 7 in Weight 175 lb BMI 27.4 BP 112/62 Blood Pressure Location Lt brachial Position Sitting Pulse 71 Pulse Source Pulse Oximeter Pulse Oximetry (%) 98 Oxygen Delivery Method Room Air Intake Visit Reasons: Annual Exam-DARIN from Dr. Loyd - see comment Allergies No Known Allergies Allergy (Verified 08/24/25 12:26) Medication List - Last Reconciled 08/24/25 by Dorene Ball MD atorvastatin 20 mg PO DAILY loratadine (Claritin) 10 mg PO DAILY multivitamin with iron 1 tab PO DAILY Tobacco use date assessed: 08/24/25 Fall risk assessment: No Falls in past year Last assessed Fall Risk: 08/24/25 Dental Screening Dental Screen Date: 08/24/25 Did you have a dental visit in the last 12 months?: Yes Did you have a dental problem in the last 6 months where you did not have access to dental care?: No Was dental information given to patient?: Patient has dentist HPI HPI Comments History of Present Illness Details History of Present Illness The patient is a 70 year old individual presenting for a physical exam. This is the first visit with this provider. The patient has a history of Gonzalez's esophagus, hypercholesterolemia, and impaired glucose tolerance. A colonoscopy and EGD performed in August 2024 revealed GERD, diverticular disease, and internal hemorrhoids, though the patient reports no associated symptoms like constipation or heartburn. The patient also has a history of a stomach ulcer about 15-20 years ago, which required an overnight hospital stay, and a recent test for H. pylori was negative. Past lab work showed a fasting blood sugar of 110 mg/dL, indicating prediabetes, and a slightly low white blood cell count that is being monitored. Cholesterol has been very high in the past, with an LDL of 171 in 2020 and 182 in 2021, but is now well-controlled on atorvastatin. Recent urgent care visits include one for a cough in March 2025, treated with albuterol and Augmentin, and another for a sore throat in November 2024, treated with Zithromax. The patient reports an occasional cough still persists. The patient reports taking atorvastatin and multivitamins, and uses Claritin seasonally for hay fever. The patient stopped using prescribed eye drops due to dryness and now uses [id number] lubricant drops. The patient has no known drug allergies. The patient denies any history of heart problems, heart attacks, asthma, COPD, emphysema, or seizures. There is no surgical history. Health Maintenance - Screening: Last colonoscopy was in Aug. - Screening: Follows up annually with an eye doctor. - Vaccinations: Up to date on flu, COVID , shingles, and tetanus shots. - Vaccinations: Received first pneumonia shot in 2020 and is due for a second one. - Lab Monitoring: Fasting blood glucose was 110 mg/dL on previous labs, consistent with prediabetes. - Lab Monitoring: Cholesterol is well-co ntrolled on medication, though previously LDL was as high as 182 mg/dL. - Lab Monitoring: Fasting bloodwork has been ordered to recheck values. - Counseling: Discussed the importance o f diet, exercise, and adequate water intake for overall health, blood sugar control, and cholesterol management. - Counseling: Advised on lifestyle modif ications for asymptomatic GERD, including dietary changes, avoiding lying down soon after eating, and elevating the head of the bed. Social History - Employment: The patient works in [employer] [employer]. - Alcohol Use: The patient reports drink ing one beer about once a week. - Tobacco Use: The patient is a never-sm oker. - Substance Use: The patient denies use of recreational drugs. - Diet: The patient has been counseled o n a healthy diet, including increasing vegetables and lean proteins (fish, chicken) while reducing beef, pork, and fried foods. 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 Results - EGD/Colonoscopy (August 2024): Findi ngs included GERD, diverticular disease, and internal hemorrhoids. - Last test for H. pylori was negative. - Past Lab Work (from last year): No ane rachael, slightly low white blood cell count, good platelet count. - Normal sodium, potassium, kidney funct ion, liver function, and thyroid studies. - Prostate specific antigen was normal. - Fasting blood sugar was 110 mg/dL. - Cholesterol was well-controlled on med ication. - Historical Lab Trends: LDL cholesterol was 171 mg/dL in 2020 and 182 mg/dL in 2021. [facility] Medical History (Updated 08/23/25 @ 14:22 by Dorene Ball MD) Cough Acute respiratory disease Peptic ulcer Glaucoma Hyperlipidemia Surgical History (Updated 01/28/25 @ 08:35 by Shari Lopez) History of esophagogastroduodenoscopy (EGD) H/O colonoscopy (~09/10/24) Family History Mother No problems noted. Father No problems noted. Social History (Updated 08/24/25 @ 12:47 by Dorene Ball MD) Household Members: Spouse Housing: Apartment Are you a primary residential care officer to a significant other at home: No Do you presently have visiting nurse or other home services: No Alcohol intake: current Comment: beer once a week Patient Tobacco Use Status: Never used Tobacco Tobacco use type: Cigarette e-Cigarette/Vaping Use: Never Used Second Hand Smoke Exposure: No service: No Current occupational status: employed Cognitive needs: No Hearing needs: No Vision needs: Yes Questionnaire PHQ-9 Over the last 2 weeks, how often have you been bothered by any of the following problems? 1. Little interest or pleasure in doing things: not at all 2. Feeling down, depressed, or hopeless: not at all 3. Trouble falling or staying asleep, or sleeping too much: not at all 4. Feeling tired or having little energy: not at all 5. Poor appetite or overeating: not at all 6. Feeling bad about yourself - or that you are a failure or have let yourself or your family down: not at all 7. Trouble concentrating on things, such as reading the newspaper or watching television: not at all 8. Moving or speaking so slowly that other people could have noticed. Or the opposite - being so fidgety or restless that you have been moving around a lot more than usual: not at all 9. Thoughts that you would be better off or of hurting yourself in some way: not at all Total score: 0 Depression Screening Interpretation: Negative Depression Screening Done: Yes Source: Developed by Drs. Gary Osullivan, Nelida Boles, Yaniv Jackson and colleagues, with an educational alisa from [employer] Thrive Questionnaire Date Thrive assessed: 08/24/25 I am a: Patient What is your living situation today?: I have a steady place to live Within the past 12 months, did the food you bought not last and you didn't have the money to get more?: Never true Within the past 12 months, did you worry whether your food would run out before you got money to buy more?: Never true Do you have trouble paying for medicines?: No Do you have trouble getting transportation to medical appointments?: No Do you have trouble paying your heating and electricity bill?: No Do you have trouble taking care of your child, family member or friend?: No Do you have trouble with day-to-day activities such as bathing, preparing meals, shopping, managing finances, etc.?: No Are you currently unemployed and looking for a job?: No Are you interested in more education?: No Please select the resources that you would like help with: None Currently or been in a relationship where the following occur: No concerns reported THRIVE Score: 0 AUDIT C Alcohol Use Questionnaire (AUDIT-C) 1. How often do you have a drink containing alcohol?: Monthly or less 2. How many drinks containing alcohol do you have on a typical day when you are drinking?: 1 or 2 3. How often do you have six or more drinks on one occasion?: Never Total Score: 1 RAY-7 AMB Questionnaire RAY-7 Date RAY - 7 assessed: 08/24/25 Feeling nervous, anxious, or on edge: 0 = Not at all Not being able to stop or control worryin = Not at all Worrying too much about different things: 0 = Not at all Trouble relaxin = Not at all Being so restless that it is hard to sit still: 0 = Not at all Becoming easily annoyed or irritable: 0 = Not at all Feeling afraid as if something awful might happen: 0 = Not at all Total RAY-7 score (0-4 normal; 5-9 mild; 10-14 moderate; 15-21 severe): 0 Source: Developed by Drs. Gary Osullivan, Nelida Boles, Yaniv Jackson and colleagues, with an educational alisa from [employer] Review of Systems Narrative Review of Systems - Constitutional: Reports weight gain. - Denies fever or syncope. - HEENT: Reports occasional need to increase television volume but is uncertain about significant hearing loss. - Denies dysphagia or nasal congestion. - Respiratory: Reports an occasional persistent cough. - Denies paroxysmal nocturnal dyspnea, shortness of breath on exertion, asthma, or COPD. - Cardiovascular: Denies chest pain or history of heart problems. - Gastrointestinal: Denies heartburn, constipation, or diarrhea. - Denies nausea or vomiting. - Genitourinary: Reports nocturia once per night. - Denies other urinary problems. - Neurological: Reports episodes of dizziness upon standing up suddenly from a low position. - Denies a history of seizures. Const Denies poor appetite and Denies weakness Eyes Denies no additional complaints ENT Reports Normal hearing present, Denies dizziness, Denies nasal congestion, Denies tinnitus and Denies sore throat Card Denies chest pain, Denies syncope, Denies rapid heart rate and Denies dyspnea Resp Denies cough and Denies dyspnea GI Denies change in stool character, Reports constipation, Denies diarrhea, Denies nausea and Denies vomiting Denies dysuria and Denies urinary frequency Neuro Reports Normal hearing present, Denies confusion, Denies dizziness, Denies syncope and Denies weakness Psych Denies confusion Physical exam (Primary Care) Vital Signs: Last Vital Signs Pulse 71 08/24/25 12:26 BP 112/62 08/24/25 12:26 Pulse Ox 98 08/24/25 12:26 Oxygen Delivery Method Room Air 08/24/25 12:26 BMI result Body Mass Index 27.4 Tobacco/Smoking Status: Tobacco use Status Tobacco use date assessed 08/24/25 08/24/25 12:28 Patient Tobacco Use Status Never used Tobacco 08/24/25 12:47 Tobacco use type Cigarette 08/24/25 12:47 e-Cigarette/Vaping Use Never Used 08/24/25 12:47 PHQ-9: PHQ-9 Score PHQ-9: Total score 0 08/24/25 12:32 Depression Screening Interpretation: Negative Thrive Assessment: Date of Thrive Assessment Date Thrive assessed 08/24/25 08/24/25 12:28 Currently or been in a relationship where the following occur: No concerns reported Narrative Physical Exam General: Cooperative, healthy appearing, comfortable, no acute distress and well developed Orientation: Patient oriented x3 Limitations: No limitations Head: Normal to inspection Ears: Hearing grossly normal bilaterally, but patient reports sometimes needing to increase TV volume Nose: Normal external nose present Face and sinus: Normal facial exam Eyes: Appearance normal, both eyes and all related structures Neck: Normal visual inspection and Yes full ROM Respiratory: Normal respiratory effort and able to speak in complete sentences. Clear to auscultation bilaterally Cardiovascular: Regular rate and rhythm. Normal S1 and S2 GI: Normal to inspection. Soft to palpation and nontender. History of GERD and diverticular disease noted Skin: No rashes or lesions noted Neuro: Patient oriented x3. Reports benign positional vertigo Extremities: Normal to inspection Const General: No confusion Orientation/consciousness: No confusion HENMT Head: Yes normocephalic Ears: external ears normal and TM's normal bilaterally Face and sinus: Yes normal facial exam Mouth: moist mucous membranes Throat: Yes tonsils normal Eyes Conjunctivae: conjunctivae normal Pupils: Equal, round and reactive pupils present and Pupil accommodation reflex normal Direct Ophthalmoscopy: normal light reflex Neck Neck: No lymphadenopathy Thyroid: Thyroid normal Chest Chest palpation & inspection: normal inspection of the chest Resp Effort & Inspection: normal respiratory effort and no audible wheezes Auscultation: clear to auscultation bilaterally, no crackles, no wheezes and lung sounds not diminished Cardio Rate: regular rate Rhythm: regular rhythm Peripheral pulses: radial pulses present and dorsalis pedis present GI Other: guaiac negativ prostate mild enlarged Palpation (GI): no masses Auscultation: normal bowel sounds and normoactive bowel sounds Male General Exam: Yes normal external exam Skin General skin exam: no rashes or lesions noted Rashes: no rashes Neuro General: No confusion Cranial nerves: Yes Equal, round and reactive pupils present and Yes Normal hearing present Cognition (Neuro): normal cognition Gait exam (Neuro): Normal gait present Motor exam (neuro): 5/5 motor strength present throughout Deep tendon reflexes (DTR's): Right brachioradialis reflex intensity grade: 2+, Left brachioradialis reflex intensity grade: 2+, Right patellar reflex intensity grade: 2+ and Left patellar reflex intensity grade: 2+ Extrem General: No edema Coding Level of Care Code Est Pt Prev Care >65y(09117) Diagnoses Physical exam Z00.00 Barretts esophagus K22.70 Hyperlipidemia E78.5 Assessment & Plan Assessment & Plan (1) Physical exam: Code(s): Z00.00 - Encounter for general adult medical examination without abnormal findings Category: Medical Plan: Patient is advised to eat healthy, keep well hydrated, keep active and have adequate sleep. (2) Barretts esophagus: Comment: August 2024 biopsy/EGD Code(s): K22.70 - Gonzalez's esophagus without dysplasia Category: Medical Plan: Avoid the foods that causes that usually spicy foods, tomato products, juices, coffee, soda and foods that your sensitive to. After eating do not lie down, allow 3-4 hours before in lie down. And keep the head of bed above 30 degrees to avoid the acid from going up. (3) Hyperlipidemia: Code(s): E78.5 - Hyperlipidemia, unspecified Category: Medical Plan: Avoid fried foods, chicken skin, eggs, butter margarine, pastries and meat. Be it pork or beef they have a lot of cholesterol LDL goal of less than 130 and triglyceride of less than 150. On atorvastatin 20 mg once a day Plan Plan Patient was informed and verbally consented to the use of an ambient scribe for clinic note documentation during this visit. 1. Wellness Visit The patient presents for a routine physical examination. A request for fasting blood work has been placed to monitor labs. Extensive counseling was provided on the importance of diet, exercise, and hydration. Follow-up is recommended in six months to review lab results. 2. Hypercholesterolemia The patient's cholesterol is currently well-controlled on atorvastatin. Given the history of significantly high LDL levels (182 mg/dL in 2021), the patient will continue the medication. A refill for atorvastatin has been sent to the pharmacy. The patient was counseled on dietary changes, including avoiding fried foods, ice cream, eggs, butter, and chicken skin. 3. Prediabetes The patient's last fasting blood sugar was 110 mg/dL, which is in the prediabetic range. The plan is to monitor this with new fasting bloodwork. The patient was counseled on the importance of balancing diet and exercise, and advised that foods like sugar, pasta, bread, rice, and potatoes contribute to blood sugar. 4. Gastroesophageal Reflux Disease The patient is asymptomatic but was found to have GERD on a recent EGD. The patient was counseled to avoid trigger foods like spicy items, tomato products, juices, soda, and coffee at night. Additional recommendations included waiting 4 hours after eating before lying down and elevating the head of the bed with three or four pillows. Medication was not recommended at this time due to the lack of symptoms and potential side effects. 5. Immunizations The patient is up-to-date on most vaccines but received a pneumonia shot in 2020 and requires one more dose. The patient was informed that the second pneumonia vaccine can be administered at a pharmacy or in the clinic. 6. Chronic Mild Leukopenia Past lab work noted a slightly low white blood cell count. The level is not concerning, and the plan is to continue monitoring with routine blood work. Discussion Notes I reviewed the patient's medical history and recent procedural findings. I explained that while the patient is asymptomatic, the EGD showed evidence of GERD, and I provided detailed lifestyle and dietary recommendations to manage this, including avoiding trigger foods, not lying down for 4 hours post-meal, and elevating the head of the bed. We discussed why starting medication like Prilosec is not advised at this time due to the lack of symptoms and potential long-term effects. We reviewed last year's lab work, noting the prediabetic blood sugar of 110, and I counseled the patient on the importance of diet and exercise to manage this, specifically reducing intake of carbohydrates and sugar. I also explained why continuing atorvastatin is necessary, citing the patient's very high past LDL levels, and I sent a refill to the pharmacy. I placed an order for new fasting blood work. I reviewed the patient's vaccination status and informed the patient of the need for a second pneumonia vaccine. A physical exam was performed, including a rectal exam which showed no occult blood and a mildly enlarged prostate. I ad vised the patient on managing positional dizziness by staying hydrated and rising slowly. I recommended a follow-up visit in six months to review the new lab results. Patient Instructions - Please get your fasting blood work done at the lab. - You must not eat for 8 hours before the test, but you can drink sips of water. - Continue taking your cholesterol medication, atorvastatin, as prescribed. - A refill has been sent to your [facility] pharmacy. - To help control your blood sugar and cholesterol, eat a healthy diet with more vegetables, fish, and chicken (not fried), and less beef, pork, and sugary foods like pasta, rice, and bread. - To prevent acid reflux, avoid spicy foods, coffee, and soda, especially at night. - Wait at least 4 hours after eating before you lie down, and sleep with your head propped up on 3-4 pillows. - Drink plenty of water, about 6 to 8 glasses a day. - Make sure to get regular exercise. - To prevent dizziness and falls, stand up slowly after you have been sitting or bending down. - You are due for your second pneumonia shot. - You can get this at the clinic or a local pharmacy like [facility]. - Please schedule a follow-up appointment in about six months to review your lab results. Orders: Orders Complete Blood Count Auto Diff Today R73.02 - Impaired glucose tolerance (oral) Thyroid Stimulating Hormone Today R73.02 - Impaired glucose tolerance (oral) Lipid Panel Today E78.00 - Pure hypercholesterolemia, unspecified, R73.02 - Impaired glucose tolerance (oral) Prostate Specific Antigen Scr Today R73.02 - Impaired glucose tolerance (oral) Hemoglobin A1c Today R73.02 - Impaired glucose tolerance (oral) UA CC w/rflx Micro + Cult Today R30.0 - Dysuria, R73.02 - Impaired glucose tolerance (oral) Comprehensive Met. Panel Today R73.02 - Impaired glucose tolerance (oral) Free T4 (Free Thyroxine) Today R73.02 - Impaired glucose tolerance (oral) Vitamin B12 and Folate Today R73.02 - Impaired glucose tolerance (oral) Medications: Refilled atorvastatin 20 mg PO DAILY 90 tabs 2RF R73.02 - Impaired glucose tolerance (oral)
[2025-08-24 12:26] VITALS: BP 112/62; PULSE 71; O2SAT 98; BMI 27.4
--- OUTSIDE RECORDS SUMMARY | 2025-08-24 15:54 | XMS_ITS | Clinical Summary ---
Author Organization [facility] Address [address] [place], [place] [id number] Phone Care Team Providers Care Staff Software Engineer Name Role Phone Wes Loyd MD Primary Care Provider [phone] Allergies No known active allergies Medications atorvastatin [...] 2004 ZOSTER VACCINES (1 of 2) 2004 INFLUENZA VACCINE (#1) 2025 07/03/2022 COVID-19 VACCINE (5 - 2024- season) 2025 07/20/2022, 07/07/2021, 12/29/2020, Additional history exists LIPID [...] topic Medical Devices Not on file Insurance [facility] MEDICARE REPLACEMENT [facility] MEDICARE REPLACEMENT [facility] MEDICARE REPLACEMENT [facility] MEDICARE REPLACEMENT [facility] MEDICARE REPLACEMENT Care Teams Staff Software Engineer Relationship Specialty Start Date End Date Wes Loyd MD [address] [place] [address] [place] [id number] PCP - General Internal Medicine 12/02/22 Additional Source Comments The information contained in this document represents components of the legal health record. It is not the complete legal health record.[facility]
== END 2025-08-24 13:14 | disposition home or self-care (01) ==
LOC: HO.HMCH 12:08
PROVIDERS: PCP Internal Medicine; Visit Provider Internal Medicine
DX: Z00.00 Encounter for general adult medical examination without abnormal findings (principal); K22.70 Barrett's esophagus without dysplasia; E78.5 Hyperlipidemia, unspecified

== ENCOUNTER → 2025-08-24 12:07 | Outpatient (BNVA) | payer MEDICARE, SELFPAY | PROVIDERS: PCP Internal Medicine; Visit Provider Internal Medicine | DX: Z00.00 Encounter for general adult medical examination without abnormal findings (principal); K22.70 Barrett's esophagus without dysplasia; E78.5 Hyperlipidemia, unspecified; Z13.31 Encounter for screening for depression; Z13.39 Encounter for screening examination for other mental health and behavioral disorders; E78.00 Pure hypercholesterolemia, unspecified; R73.03 Prediabetes; K21.9 Gastro-esophageal reflux disease without esophagitis; D72.819 Decreased white blood cell count, unspecified | CPT/HCPCS: 96127; 99397 ==

== ENCOUNTER 2025-08-31 09:27 | Outpatient (REF) | payer MEDICARE, SELFPAY ==
[2025-08-31 09:51] LABS: MANUAL DIFF FLAG NO
[2025-08-31 10:41] LABS: Appearance Urine Clear; Glucose Urine UA Negative (Negative); PH 7.0 (5.0-9.0); Specific Gravity - Urine <= 1.005 (1.005-1.025)
[2025-08-31 10:42] LABS: Hematocrit 44.1 % (42.0-52.0); Hemoglobin 15.6 g/dl (14.0-18.0); Imm Gran Abs Auto 0.03 X10*3/uL (0.00-0.03); Imm Gran Pct Auto 0.7 % (0.0-0.4); Lymphocytes Absolute Auto 1.5 X10*3/uL (1.2-4.9); Mean Corpuscular HGB Conc 35.4 g/dl (31.0-36.0); Mean Corpuscular Hemoglobin 33.7 pg (27.0-33.0); Mean Corpuscular Volume 95.2 fL (80.0-98.0); NRBC Abs Auto 0.000 X10*3/uL (0.0-0.012); NRBC Pct Auto 0.0 /100WBC (0.0-0.2); Platelet Count 171 X10*3/uL (160-400); Red Blood Count 4.63 X10*6/uL (4.60-5.80); White Blood Count 4.5 X10*3/uL (4.8-10.8)
[2025-08-31 11:36] LABS: Alanine Aminotransferase 46 U/L (0-40); Albumin Level 4.4 g/dL (3.5-5.0); Alkaline Phosphatase 63 U/L (39-117); Anion Gap 11 (12-20); Aspartate Amino Transferase 33 U/L (5-37); Blood Urea Nitrogen 12 mg/dL (9-16); Calcium 9.1 mg/dL (8.4-10.2); Carbon Dioxide 25 mmol/L (22-29); Chloride 108 mmol/L (96-108); Cholesterol 154 mg/dL (<200); Estimated Glomerular Filt Rate > 60; Free T4 (Free Thyroxine) 0.89 ng/dL (0.71-1.85); HDL Cholesterol 40 mg/dL (>40); Potassium 3.8 mmol/L (3.3-5.1); Sodium 140 mmol/L (135-145); Thyroid Stimulating Hormone 2.60 uIU/mL (0.32-4.0); Total Protein 7.1 g/dL (6.5-8.0); Triglycerides 89 mg/dL (<150)
[2025-08-31 12:11] LABS: Folate 13.8 ng/mL (> or = 4.0); Vitamin B12 600 pg/mL (200-900)
== END 2025-08-31 09:28 | disposition home or self-care (01) ==
LOC: HO.LAB 09:27
PROVIDERS: PCP Internal Medicine; Visit Provider Internal Medicine
DX: Z12.5 Encounter for screening for malignant neoplasm of prostate (principal); R73.02 Impaired glucose tolerance (oral); E78.00 Pure hypercholesterolemia, unspecified; R30.0 Dysuria
CPT/HCPCS: 36415; 80053; 80061; 81003; 82607; 82746; 83036; 84153; 84439; 84443; 85025